=== PATIENT | female | born 2000 | race Caucasian/White ===

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

== ENCOUNTER 2020-07-22 13:53 | Outpatient (CLI) | payer MEDICAID, SELFPAY ==
--- NOTE | 2020-07-22 11:00 | DI.RAD_ITS ---
EXAM: XR KNEE RT 4V+ CLINICAL HISTORY: hx right paterllar dislocation, popping and pain. TECHNIQUE: 2D digital imaging was performed. COMPARISON: CR XR knee RT 3V AP,lat,skip from 02/18/2018 FINDINGS: BONES: No acute fracture is present. No bony destructive lesion is seen. JOINTS: The knee is normally aligned. No joint effusion is seen. SOFT TISSUE: Normal. IMPRESSION: Unremarkable radiographs of the right knee. DATA REPOSITORY: RADIATION DOSE DELIVERED:
== END 2020-07-22 14:13 ==
PROVIDERS: PCP Nurse Practitioner Family; Visit Provider Pediatrics
DX: M25.561 Pain in right knee (principal)
CPT/HCPCS: 73564

== ENCOUNTER 2020-10-01 04:01 | Outpatient (CLI) | payer MEDICAID, SELFPAY ==
--- NOTE | 2020-10-01 06:45 | DI.MRI_ITS ---
Exam(s) MR LOWER JOINT RT WO EXAM: MR LOWER JOINT RT WO CLINICAL HISTORY: ?MPFL TEAR,PATELLAR INSTABILITY RT KNEE, M25.361. TECHNIQUE: Multiplanar multisequence MRI Examination was performed. COMPARISON: 22 July 2020 FINDINGS: There is a small joint effusion. No synovial thickening. There is no Kat's cyst. The patellofemo ral ligaments appear intact. The cruciate and collateral ligaments, quadriceps and patellar tendons appear intact. The menisci appear intact. No bone contusion or cartilage defect is seen. IMPRESSION: Unremarkable MRI of the Right knee. No evidence of MPFL tear. DATA REPOSITORY:
== END 2020-10-01 04:21 ==
PROVIDERS: PCP Nurse Practitioner Family; Visit Provider Student in an Organized Health Care Education/Training Program
DX: M25.561 Pain in right knee (principal); M25.361 Other instability, right knee; M25.461 Effusion, right knee
CPT/HCPCS: 73721

== ENCOUNTER 2020-11-08 02:36 | Outpatient (CLI) | payer MEDICAID, SELFPAY ==
[2020-11-08 12:03] LABS: Source Nasal/Nares
[2020-11-08 14:48] LABS: COVID-19 PCR Negative (Negative)
== END 2020-11-08 02:37 | disposition home or self-care (01) ==
PROVIDERS: PCP Nurse Practitioner Family; Visit Provider Student in an Organized Health Care Education/Training Program
DX: Z20.822 Contact with and (suspected) exposure to COVID-19 (principal); Z01.818 Encounter for other preprocedural examination
CPT/HCPCS: 87635

== ENCOUNTER 2020-11-09 09:51 | Day surgery (SDC) | payer MEDICAID, SELFPAY ==
[2020-11-09] VITALS (8 sets, daily range): BP systolic 100–111; BP diastolic 51–65; PULSE 54–70; RESP 16–25; TEMP 36.2–37.1; O2SAT 95–100; BMI 33.3
[2020-11-09] MEDS: Lactated Ringers 1,000 ML 80 ML IV (10:37)
--- NOTE | 2020-11-09 10:38 | W.ANESPRE ---
General Info Date of Service Date Performed: 11/09/20 Height: 5 ft 1.81 in Weight: 82.1 kg Body Mass Index (BMI): 33.3 Surgical Procedure: Operation Date: 11/09/20 12:10 Proposed Procedures Side Surgeon p KNEE RT MPFL RECONSTRUCTION , RT KNEE ARTHROSCOPY Right Omar Tran MD Meds Allergies and Home Medications Allergies Allergy/AdvReac Type Severity Reaction Status Date / Time kiwi Allergy Intermediate RASH AND Verified 11/05/20 14:16 SWELLING shellfish derived Allergy Intermediate RASH AND Verified 11/05/20 14:16 SWELLING COLD TEMPERATURES AdvReac Swelling/Ed Uncoded 11/05/20 14:16 reena Home Medication Medication Instructions Recorded Space Chamber Plus #1 01/27/16 epinephrine 0.3 mg/0.3 mL 0.3 mg IM ONCE #1 pack 12/06/18 injection, auto-injector ibuprofen 400 mg PO PRN PRN 04/04/19 albuterol sulfate 90 mcg/actuation 2 puff INHALATION Q4H PRN #1 05/19/20 aerosol inhaler inhaler citalopram 20 mg tablet 20 mg PO DAILY #30 tab 10/13/20 levothyroxine 75 mcg tablet 75 mcg PO DAILY 30 Days #30 tab-cap 10/13/20 trazodone 50 mg tablet 50 mg PO QHS PRN #30 tab 10/13/20 Current Visit Medications: Current Medications Generic Name Dose Route Start Last Admin Trade Name Freq PRN Reason Stop Dose Admin Ringer's Solution 1,000 mls @ 80 mls/hr 11/09/20 06:00 11/09/20 10:37 IV 12/08/20 23:59 80 mls/hr INFUSION KD Administration Cefazolin Sodium/Dextrose 2 gm in 50 mls @ 100 mls/hr 11/09/20 06:00 Ancef Duplex IVPB 11/09/20 16:00 PREOP KD IV Miscellaneous Supplies 1 each 11/09/20 06:00 Iv Access IV 12/08/20 23:59 DIRECTED KD Sodium Chloride 0 ml 11/09/20 06:00 Normal Saline Flush 10 Ml Syr IV 12/08/20 23:59 PRN PRN Sodium Chloride 0 ml 11/09/20 06:00 Normal Saline 10 Ml Vial IJ 12/08/20 23:59 DIRECTED PRN Sterile Water 0 ml 11/09/20 06:00 Water,Injection,Sterile 10 Ml Vial IJ 12/08/20 23:59 DIRECTED PRN PFSH Active Problems Active Problems: Problem Status Onset Code Anxiety F41.9 Depression F32.9 Patellar instability of right knee M25.361 DUB (dysfunctional uterine bleeding) 11/30/16 N93.8 Chronic motor tic 01/27/16 F95.1 Asthma, mild intermittent, well-controlled 04/14/15 J45.20 Acquired hypothyroidism 12/10/15 E03.9 Medical History Medical History Anxiety Asthma Depression Food allergy Hypothyroidism Tonsil stone Urticaria due to cold Tobacco Smoking/Tobacco Use Status: Never Second hand exposure: No Alcohol Alcohol Intake: never Substance Use Substance use: Never Substance use type: does not use Vital Signs and Lab Results Vital Signs Most Recent Vital Signs in EMR: Most Recent Vital Signs Temp Pulse Resp BP Pulse Ox 37.1 C 70 16 110/64 99 11/09/20 10:02 11/09/20 10:02 11/09/20 10:02 11/09/20 10:02 11/09/20 10:02 Lab Results Blood Type / Crossmatch: No Data to Display Complete Blood Count: No Data to Display Complete Metabolic Panel: No Data to Display Liver Function Panel: No Data to Display Coagulation Panel: No Data to Display Cardiac Panel: No Data to Display Arterial Blood Gas: No Data to Display Venous Blood Gas: No Data to Display Pancreas Panel: No Data to Display Thyroid Panel: No Data to Display Infectious Disease: Coronavirus (COVID-19)(PCR) Negative (Negative) 11/08/20 08:56 11/08/20 Coronavirus 2019 Source Nasal/Nares 11/08/20 08:56 11/08/20 Blood Cultures: No Data to Display Toxicology Panel: No Data to Display Panel: No Data to Display Anesthesia Assessment and Plan Anesthesia History Personal History: No History of Anesthesia Complications Family History: No Family History of Anesthesia Complications Exercise Tolerance Exercise Tolerance: Metabolic Equivalents>4 Pertinent Negatives Pertinent Negatives: No Symptoms of GERD, No Major Cardiovascular Symptoms or Complaints, No Major Pulmonary Symptoms or Complaints and No History of CVA/TIA Cardiac & Pulmonary Exam Cardiac Exam: Normal S1/S2 Heart Sounds Pulmonary Exam: Clear Bilateral Breath Sounds Airway Exam Known Difficult Airway: No Mallampati Class: 1 Mouth Opening: Normal (> 3cm) Thyromental Distance: Greater than 3 cm Neck Range of Motion: Full ROM Neck Circumference: Normal Teeth Condition: Normal Dentition ASA Classification ASA Score: ASA 1 Emergency Case?: No NPO Status NPO Status: NPO Clears >2 hours, Solids >8 hours Status Status: Negative HCG Anesthesia Plan Resuscitation Status: Full Code Anesthesia Technique: General Anesthesia Airway Planned: LMA Monitors Used: Standard Monitors
--- NOTE | 2020-11-09 11:15 | DI.RAD_ITS ---
Exam(s) XR KNEE RT 1V EXAM: XR KNEE RT 1V CLINICAL HISTORY: PATELLAR INSTABILITY RIGHT KNEE TECHNIQUE: 2D and realtime digital imaging was performed. COMPARISON: No exams were available for comparison FINDINGS: C-arm fluoroscopy was utilized by Dr. Tran. Please see Dr. Tran procedure note. IMPRESSION: RADIATION DOSE DELIVERED: edy Villegas=8.2 mGy Total DLP
[2020-11-09] MEDS: ceFAZolin 2 GM/50 ML BAG IVPB (11:45)
--- NOTE | 2020-11-09 12:11 | W.ANESNERVE ---
Nerve Block Single Injection Procedure Date and Time Date Performed: 11/09/20 Procedure Start: 11:40 Location Where Procedure Performed Procedure Location: PACU Reason Performed: Postoperative Analgesia Requesting Provider: Omar Tran Timeout Performed Timeout Performed: Yes Monitoring Used ECG, Blood Pressure and SpO2 Sterility Sterility: Hand Hygiene, Surgical Cap, Surgical Mask, Sterile Gloves, Eye Protection and Chlorhexidine Sedation Given During Procedure Sedation Given (Indicate Dose Given): Versed IV Dose:: 2 mg Patient Mental Status Patient Mental Status: Sedate with meaningful communication Nerve Block 1st Nerve Block: Laterality: Right Block Type: Adductor Canal Needle / Catheter Used: 120mm SonoPlex II Local Anesthetic Bolus (Indicate Dose Given): Lidocaine used for local infiltration of skin, Injected in 3-5ml increments after negative blood aspiration and Bupivacaine 0.25% Dose:: 20 cc Additives (Indicate Dose Given): None Ultrasound: Sterile probe cover and gel used Ultrasound Image Saved?: Yes Nerve Stimulator: Not Used Paresthesia: None Procedure Tolerated: No Complications and Patient tolerated well Procedure Outcome: Successful Performed By: Cheyenne Dao Supervised By: Cm Verma
--- NOTE | 2020-11-09 14:22 | W.PM.DSUDISC ---
Discharge Plan Disposition Patient Disposition: HOME Condition: Good Discharge Details Reason For Visit: Right Patellar Instability Attending Provider: Omar Tran Primary Care Provider: Jud Dumont Home Meds and New Rx's Prescriptions: New acetaminophen 500 mg tablet 500 mg PO Q6H PRN PRN (Reason: pain) Qty: 90 RF: 3 aspirin 81 mg tablet,delayed release (DR/EC) 81 mg PO BID Qty: 28 RF: 0 hydrocodone-acetaminophen 5-325 mg tablet 1 tab PO Q4H PRN (Reason: pain) Qty: 14 RF: 0 ibuprofen 600 mg tablet 600 mg PO TID PRN (Reason: pain) Qty: 90 RF: 3 Continued epinephrine [EpiPen 2-Paulino] 0.3 mg/0.3 mL auto-injector 0.3 mg IM ONCE Qty: 1 RF: 1 citalopram [Celexa] 20 mg tablet 20 mg PO DAILY Qty: 30 RF: 3 levothyroxine 75 mcg tablet 75 mcg PO DAILY 30 Days Qty: 30 RF: 4 trazodone 50 mg tablet 50 mg PO QHS PRN (Reason: insomnia and anxiety) Qty: 30 RF: 3 (DME) Space Chamber Plus 1 EACH spacer 1 ea Miscellaneous Q4H PRN Qty: 1 RF: 0 albuterol sulfate [ProAir HFA] 90 mcg/actuation HFA aerosol inhaler 2 puff Inhalation Q4H PRN Qty: 1 RF: 1 Discontinued ibuprofen 200 mg Tablet 400 mg PO PRN PRNRF: 0 Discharge Instructions Additional Instructions: Activity: You may bear weight as tolerated on the leg using crutches for support. Until you are able to lift your leg, you should use crutches to mobilize. Once you are able to activate your quadriceps, then you can start to discard the crutches. You may move your ankle and toes as needed. Dressing: You should keep the knee dressing for at least 3 days but may leave it for up to one week. You have small incisions under the dressing with buried sutures. You may take a get the incisions wet after 3 days. You may cover the wounds or dressings if you like but the wounds can get wet starting on day #3. Keep the incisions covered with light gauze or bandaids until follow-up. Medications: - You should take Tylenol and Ibuprofen around the clock for the first days-weeks. This will cover baseline pain control. - You have been prescribed a stronger medication, Hydrocodone/Acetaminophen, if needed. If this is necessary, and you need a refill, please call the office at [phone]. Follow-up: - You should have a followup with Dr. Tran and his team in 2 weeks. - You should start PT within the next week. Referrals: Omar Tran MD [ [facility] STAFF PHYSICIAN] - Equipment/Supplies: Partial Weight Bearing Crutches Activity:: Elevate Remove Dressings/Wound Care:: 72 hours Shower/Bathe:: 72 hours Diet:: As Tolerated Discharge Orders Discharge Orders: Discharge Order (Routine); Ordered 11/09/20 Ordered By: Omar Tran DS: Diagnosis Discharge Diagnosis (1) Patellar instability of right knee: Status: Acute
--- NOTE | 2020-11-09 14:42 | W.ANESPOSTOP ---
Postoperative Evaluation Date, Time and Location Date Performed: 11/09/20 Time Performed: 14:42 Patient Location: PACU Vital Signs Most Recent Imported Vital Signs: Most Recent Vital Signs Temp Pulse Resp BP Pulse Ox 36.2 C L 62 23 105/55 L 99 11/09/20 14:32 11/09/20 14:32 11/09/20 14:32 11/09/20 14:32 11/09/20 14:32 Assessment Mental Status: Arousable with meaningful communication Airway and Respiratory Function: Patent airway with normal (patient baseline) respiratory exam Cardiovascular Function: Hemodynamically Stable Hydration Status: Adequately Hydrated Nausea & Vomiting: No Nausea or Vomiting Pain: Pt. Denies Any Pain Peripheral Nerve Block: Regional nerve block not resolved at time of post operative discharge
--- NOTE | 2020-11-09 22:41 | ROE_ITS ---
Date of service: 11/09/20 Time of Service: 14:41 Operative Note Operative Note DATE OF PROCEDURE: 11/09/20 PRE-OP DIAGNOSIS: Right Patellar Instability POST-OP DIAGNOSIS: same PROCEDURE: Right Medial Patellofemoral Reconstruction with Allograft SURGEON: Omar Tran [employer] INSTRUCTOR: Greg Sanders ANESTHESIA TYPE: General LMA/ETT Refer to Anesthesia Record ESTIMATED BLOOD LOSS: 20 PATHOLOGY: none sent TOURNIQUET TIME: 0 COMPLICATIONS: None Patient was transported to: PACU Patient's condition: stable Indications: I have seen Alma in clinic for symptoms of right patellar instability. This was confirmed based on MRI and exam findings and clinical history. Nonoperative measures were exhausted but disability and pain and apprehension persisted. I discussed medial patellofemoral ligament reconstruction with the patient. I reviewed the risks of the procedure to include, but not limited to, bleeding, infection, pain, stiffness, recurrence, fracture, damage to nerves or vessels, recurrence, blood clot. Despite these risks, the patient elected to proceed. Findings: A diagnostic arthroscopy was performed with the following findings: Suprapatellar Pouch: No significant inflammation, No loose bodies Medial Compartment: No meniscal tear, Intact meniscal root, No significant chondromalacia or signs of arthritis, No loose bodies Notch: ACL and PCL were intact Lateral Compartment: No meniscal tear, No significant chondromalacia or signs of arthritis, No loose bodies Patellofemoral Compartment: No significant chondromalacia, Lateral Patellar Maltracking, dense anterior medial plica MPFL reconstruction performed with Gracillis allograft. Procedure Description: Alma was greeted in the preoperative holding area where the correct side was identified and marked. The consent was reviewed with the patient and signed. The history and physical was updated. All questions were answered. An adductor canal block was first administered. Then, Alma was taken back to the operating room. The patient was placed into the supine position on the operating room table. All bony prominences were well padded. Prophylactic antibiotics in the form of cefazolin were administered. An exam under anesthesia demonstrated at the right patella translated nearly 4 quartiles laterally. The right leg was then prepped with Chloraprep and draped in a standard fashion with arthroscopic extremity drape. A timeout to confirm correct identity, side and site, procedure, allergies, anesthesia, and medical concerns was performed. On the back table, the allograft was prepared. The gracilis allograft was thawed. The 2 ends were whipstitched with a #2 fiber loop. The graft was then wrapped around the Mitek rigid loop advanced. Graft was measured to be approximately 5 mm in total diameter at the end. The graft was kept soaked in vancomycin saline no needed later in the case. The leg was placed into a pneumatic leg gonzalez, SPIDER2. A standard lateral portal was made at the lateral border of the patella tendon in line with the inferior pole of the patella, soft spot. The skin and deep tissue was incised sharply and the blunt trochar was inserted atraumatically. A diagnostic arthro scopy was performed and the findings are listed above. The suprapatellar pouch had no significant inflammatory change. The patellofemoral articulation showed no articular damage but did show that the patella rested in a slightly lateral position. Going into flexion the patella with then relocate but the median ridge of the patella rested adjacent to the lateral aspect of the trochlea. There was also a dense anteromedial plica. The lateral gutter had no loose bodies and the medial gutter had no loose bodies. The knee was brought into some valgus stress in extension to open the medial compartment. A medial portal was made, localized by a spinal needle. The portal was created with an #11 blade through skin and capsule under direct visualization avoiding any meniscal injury. A probe was then inserted into the medial compartment. The medial compartment was fully inspected. The chondral surface of the tibia showed no significant chondromalacia and the surface of the femur showed no significant chondromalacia. The medial meniscus had no meniscal tear. The notch was then inspected which showed an intact ACL and an intact PCL. The leg was then brought into a figure of 4 position. The lateral compartment was fully inspected with the arthroscope and a probe. The chondral surface of the lateral femur showed no significant chondromalacia. The chondral surface of the lateral tibia showed no significant chondromalacia. The lateral meniscus had no meniscal tear. The arthroscope was brought back into the suprapatellar pouch and the leg was in full extension and using a shaver from the medial portal I resected the prominence of the anteromedial plica such that the patella was easily viewed in its entirety without any obstruction or interposition tissue. The knee was thoroughly irrigated with the arthroscopic fluid on high flow and pressure. Inflow was stopped and excess fluid was removed. The wounds were closed with 4- 0 Monocryl. Attention was now then turned to the MPFL reconstruction. A 2 to 3 cm incision was made off the medial border of the patella biased superiorly. This was taken down sharply through the skin. Once the deeper fascia was identified this was incised off of the patella in a full-thickness fashion down to the level of the joint capsule but not through it. At all times the joint capsule was not penetrated. This full-thickness flap was elevated and the medial border patella was identified. This medial border was roughened with a rongeur. I then placed 2 Mitek Lupine anchors. The first was placed superiorly at the very far superior medial aspect of the patella. The second was placed approximately 15 to 20 mm distally roughly in the midportion of the patella over the medial side. These anchors had excellent purchase in the bone and were tested for pullout strength initially. The medial epicondyle and the abductor tubercle were palpated through the skin over the medial aspect of the knee. This was marked on the skin. Another 2 cm incision was made overlying this area. I then created the plane between layers 2 and 3 on the medial side of the knee starting at the patella and working down towards the sulcus but doing the abductor tubercle and the medial epicondyle. Using a right angle clamp this course was identified and the layers overlying the abductor tubercle and the medial condyle were elevated and incised. A passing suture was placed within the appropriate layer from the medial femur to the medial patella. Using the guide pin from the Mytec rigid lipid band system, I placed the pin in the appropriate position as felt by palpation. I used a true lateral of the knee radiographically to confirm appropriate positioning, as just anterior to the posterior femoral line and just posterior to the posterior edge of Blumensat's line. This was then advanced into the femur aiming anteriorly and laterally. It was placed all the way through the femur out the lateral skin. This tunnel was measured at 75 mm in length. The graft was previously measured 5 mm in diameter so a 5 mm reamer was used to open up the path of the tendon graft. This was drilled to a depth of about 45 mm. The allograft with the ridge of advanced sutures were then passed from the patella through the second and third layers out to the medial knee. Passing suture was placed through the Beath pin and advanced across the femur and this passing suture was used to bring the sutures from the rigid loop advanced devices through the femur and out the lateral leg. Once this was in position the sutures and the graft material, which was previously marked, were brought through the femur. Once deep enough the button was flipped and countertraction was applied locking the button onto the lateral femoral surface. This was manipulated with a snap to make sure is resting on the bone. Based on previous measurements and palpation there is at least 15 mm of graft within the femur at this point. The remainder of the graft was then pulled tight through the medial knee and over the patella. The graft was advanced minimally into the femoral tunnel and the 2 ends were then secured to the medial patella for the previous anchors. Prior to placing the sutures I did test each anchor and unfortunately the more distal of the 2 pulled out. I then used a 4.0 mm Mitek anchor in its place with excellent purchase which was once again tested before placing. The suture from each anchor was then tied onto the tendon over the medial patella. This was done in multiple throws locking itself and then tying it onto itself. With this now in position the knee was taken through range of motion. The patella still noted to be somewhat lax but there is no notable asymmetry between flexion extension. I then used the rigid advance slipknot to tighten the graft by pulling it into the tunnel a few more millimeters. This was done incrementally and tested in multiple positions. This was done with the knee in approximate 45 degrees of flexion. After tightening it slightly I then brought the knee back to extension and also to flexion to make sure we had full range of motion and the patella was stable in extension. After this cycling was done the knee was able to be fully flexed and the patella was able to be translated up to 2 quartiles laterally but no more. The excess tendon at the patella was then folded over on itself and tied to each other using #2 Ortho cord. The previous sutures used to tie the tendon were also incorporated in this. The wounds were then thoroughly irrigated. The fascial layers of the medial knee were then closed in large grasping sutures using #2 Ortho cord. The tendinous material was placed underneath these layers. The fascia layer over the medial femur was also closed with a #0 Vicryl. Deep tissues were closed with 0 Vicryl followed by 2-0 Vicryl and the skin was closed with a running, subcuticular 4-0 Monocryl. The wounds were all injected with 0.25% bupivacaine. The knee was dressed with 4 x 4's, ABD, Kerlix, Steve wrap. A Cryo/Cuff was placed. The patient tolerated the procedure well and was taken to the PACU in a stable condition suffering no known complication.
== END 2020-11-09 16:20 | disposition home or self-care (01) ==
PROVIDERS: PCP Nurse Practitioner Family; Visit Provider Student in an Organized Health Care Education/Training Program
PROC: (CPT 29888; principal; 2020-11-09 12:00)
DX: M25.361 Other instability, right knee (principal); M22.11 Recurrent subluxation of patella, right knee; J45.909 Unspecified asthma, uncomplicated; E03.9 Hypothyroidism, unspecified
CPT/HCPCS: 27420; 29875; 76942; C1713; 73560; J0131; J0690; J1100; J1885; J2001; J2250; J2405; L8699

== ENCOUNTER 2020-12-23 14:40 | Outpatient (REF) | payer MEDICAID, SELFPAY | END 2020-12-23 14:41 | disposition home or self-care (01) | LOC: LBN 14:40 | PROVIDERS: PCP Nurse Practitioner Family; Visit Provider Obstetrics & Gynecology Gynecology | DX: L02.215 Cutaneous abscess of perineum (principal) | CPT/HCPCS: 87070; 87205 ==

== ENCOUNTER 2021-03-02 04:02 | Outpatient (CLI) | payer MEDICAID, SELFPAY ==
[2021-03-02 10:44] LABS: HGB 11.2 g/dL (11.2-15.7)
[2021-03-02 12:03] LABS: TSH (W/Ref FT4) 2.08 uIU/mL (0.36-3.74)
== END 2021-03-02 04:03 | disposition home or self-care (01) ==
LOC: LBO 04:03
PROVIDERS: PCP Nurse Practitioner Family; Visit Provider Nurse Practitioner Family
DX: E03.9 Hypothyroidism, unspecified (principal)
CPT/HCPCS: 36415; 84443; 85018

== ENCOUNTER 2021-06-20 16:48 | Outpatient (REF) | payer MEDICAID, SELFPAY ==
--- NOTE | 2021-06-20 14:15 | PAPFT_PTH ---
PATIENT: Alma Ayers LOC: [facility] U#:[id number] AGE/SX: 21/F ROOM: RE06/20/[address]: Yuli Montez NP : [id number] BED: DIS: 06/20/2021 SPEC #: [id number] RECD: 06/20/21 18:26 STATUS: DUTCH SAAVEDRA #: [id number] ASHA: 06/20/21 14:[address]: Yuli Montez NP DEPT: [facility] Cytology RECD BY: Karuna Cooney ENTERED: 06/20/21 18:26 SP TYPE: PAPFT OT DR: Jud Dumont Tissues: 1 - CX/ENDOCX FOR PAP SMEARS Procedures: PAP THIN PREP/[facility] Screening Comments: [id number]
== END 2021-06-20 16:49 | disposition home or self-care (01) ==
LOC: LBN 16:48
PROVIDERS: PCP Nurse Practitioner Family; Visit Provider Nurse Practitioner Women's Health
DX: Z12.4 Encounter for screening for malignant neoplasm of cervix (principal)
CPT/HCPCS: 88142

== ENCOUNTER 2021-06-30 11:23 | Outpatient (CLI) | payer MEDICAID, SELFPAY ==
--- NOTE | 2021-06-30 10:15 | DI.RAD_ITS ---
Exam(s) XR KNEE RT 3V AP,LAT,RAJNI EXAM: XR KNEE RT 3V AP,LAT,RAJNI CLINICAL HISTORY: eval R knee instability after MPFL. TECHNIQUE: 2D digital imaging was performed. COMPARISON: CR XR KNEE RT 4V+ from 07/22/2020 MR MR LOWER JOINT RT WO from 10/01/2020 FINDINGS: Is no evidence of fracture or joint effusion. 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 There has been interval surgery. There is now a single metallic plate at level of lateral epicondyle . Bone density is normal. No osseous lesions. Retropatellar compartment space appears normal. The re is no patellar offset evident. No degenerative changes in the knee joint. IMPRESSION: DATA REPOSITORY: RADIATION DOSE DELIVERED:
== END 2021-06-30 11:24 | disposition home or self-care (01) ==
LOC: DIORS 11:24
PROVIDERS: PCP Nurse Practitioner Family; Referring Provider Nurse Practitioner Family; Visit Provider Student in an Organized Health Care Education/Training Program
DX: M25.361 Other instability, right knee (principal); Z98.890 Other specified postprocedural states
CPT/HCPCS: 73562

== ENCOUNTER 2021-07-11 01:29 | Outpatient (CLI) | payer MEDICAID, SELFPAY ==
--- NOTE | 2021-07-11 07:30 | DI.MRI_ITS ---
Exam(s) MR LOWER JOINT RT WO EXAM: MR LOWER JOINT RT WO CLINICAL HISTORY: RT KNEE PAIN, PATELLAR INSTABILITY,M25.361 TECHNIQUE: Multiplanar multisequence MRI of the knee was performed. COMPARISON: CR XR knee RT 3V AP,lat,rajni from 02/18/2018 MR MR LOWER JOINT RT WO from 10/01/2020 CR XR KNEE RT 3V AP,LAT,RAJNI from 06/30/2021 FINDINGS: EFFUSION: A small amount of increased joint fluid. No large joint effusion. There is no evidence of Kat's cyst in the popliteal fossa. MARROW:There are postsurgical changes of medial patellofemoral ligament repair. Endo-button extends across the metaphysis of femur to the medial femoral condyle. There also postsurgical changes of the superomedial patella. There is a benign-appearing eccentric sclerotic bone lesion in the posterior aspect of the distal femoral diaphysis-metaphysis junction, not associated with surrounding bone valerie a and most probably a benign fibrous cortical defect. This is unchanged from the prior MRI scan of 2020. Also unchanged from plain radiographs of 02/18/2018. PATELLOFEMORAL COMPARTMENT: The quadriceps tendon is intact. The patellar ligament is intact. Mild increased signal noted in the quadriceps fat pad just above the patella. No abnormal signal noted in the anterior intra-articular Hoffa fat. There is no significant thinning of the retropatellar cartilage. No evidence of fissure nor signific ant chondral defect. No osteochondral defect at this level.Lateral patellar retinaculum appears inta ct. Postsurgical increased signal seen junction medial patellar retinaculum and patella. There is t hickening of the medial retinaculum. The remainder of the patellar retinaculum appears unremarkable as does the medial collateral ligament. CRUCIATE LIGAMENTS: The anterior cruciate ligament is intact.The posterior cruciate ligament is intac t. MEDIAL COMPARTMENT/MEDIAL MENISCUS: There are no tears of the medial meniscus evident.. There are no chondral defects, osteochondral defects, subarticular marrow edema, nor osteophytes evid ent. MEDIAL COLLATERAL LIGAMENT: Intact LATERAL COMPARTMENT/LATERAL MENISCUS: There is no evidence of lateral meniscal tear.There are no el dral defects, osteochondral defects, subarticular marrow edema, nor osteophytes evident. ILIOTIBIAL BAND: Intact LATERAL COLLATERAL LIGAMENT COMPLEX: The fibular collateral ligament is intact. The biceps femoris t endon is intact.Popliteus muscle and tendon are intact. IMPRESSION: 1. There postsurgical changes from medial patellofemoral ligament repair, including some thickening o f the medial patellar retinaculum.. 2. No meniscal nor cruciate ligament tears. No collateral ligament tears. 3. Small amount of increased joint fluid. 4. No obvious degenerative changes. DATA REPOSITORY:
--- NOTE | 2021-07-11 16:06 | DI.VRAD_ITS ---
PROCEDURE INFORMATION: Exam: MR Right Lower Extremity Joint Without Contrast, Knee Exam date and time: 07/11/2021 10:50 AM Age: 21 years old Clinical indication: Pain; Knee; Right; Prior surgery; Surgery date: 6+ months; Surgery type: Mpfl October 2020 TECHNIQUE: Imaging protocol: MR of the Right lower extremity joint without contrast. Exam focused on the knee. COMPARISON: MR LOWER JOINT RT WO 10/01/2020 10:07 AM FINDINGS: Bones and cartilage: No edema present in the femur, proximal tibia or fibula. Patella is in normal position. Joint spaces: No significant joint space effusion. Medial meniscus: Unremarkable. No tear. Lateral meniscus: Unremarkable. No tear. Anterior cruciate ligament: Unremarkable. No tear. Posterior cruciate ligament: Unremarkable. No tear. Medial capsule and supporting structures: Postsurgical changes of the lateral femur consistent with medial patellofemoral ligament repair. Endo-button extends across the metastasis of the femur to the medial femoral condyle. There are postsurgical changes of the superomedial patella. Lateral capsule and supporting structures: Unremarkable. No tear. Extensor mechanism of knee: Unremarkable. No tear. Muscles: Unremarkable. Soft tissues: Unremarkable. IMPRESSION: Postsurgical changes from medial patellofemoral ligament repair. Dictated and Authenticated by: Dk Balderas MD. Ordering:CONSUELO Nelson MD
== END 2021-07-11 01:49 ==
PROVIDERS: PCP Nurse Practitioner Family; Visit Provider Student in an Organized Health Care Education/Training Program
DX: M25.561 Pain in right knee (principal); M25.361 Other instability, right knee; Z98.890 Other specified postprocedural states; M25.461 Effusion, right knee
CPT/HCPCS: 73721

== ENCOUNTER 2021-07-14 20:20 | Emergency (ER) | payer MEDICAID, SELFPAY ==
[2021-07-14 20:14] VITALS: BP 145/81; PULSE 84; RESP 18; TEMP 36.5; O2SAT 98
[2021-07-14] MEDS: Normal Saline 1,000 ML 1000 ML IV (20:39)
[2021-07-14] MEDS: Ketorolac 30 MG/ML VIAL (20:39)
[2021-07-14 20:44] LABS: Abs Immature Grans 0.03 10^3/uL (0.0-0.06); Absolute Basophil Count 0.04 10^3/uL (0.0-0.2); Absolute Eosinophil Count 0.02 10^3/uL (0.0-0.7); Absolute Lymphocyte Count 3.26 10^3/uL (1.2-3.4); Absolute Monocyte Count 0.48 10^3/uL (0.1-0.8); Absolute Neutrophil Count 8.24 10^3/uL (1.2-6.7); Basophils % 0.3; Eosinophils % 0.2; HCT 38.6 % (36.0-46.0); HGB 12.2 g/dL (11.2-15.7); Immature Grans % 0.2; MCH 29.6 pg (27.0-33.0); MCHC 31.6 % (32.0-36.0); MCV 93.7 fL (80-95); MPV 10.7 fL (8.0-11.0); Neutrophils % 68.3; Nucleated RBC 0 %; Platelet Count 374 10^3/uL (130-400); RBC 4.12 10^6/uL (3.93-5.22); RDW 13.3 % (11.7-14.6); RDW-SD 46.4 fL; WBC 12.06 10^3/uL (4.4-10.8)
[2021-07-14 20:48] LABS: Bilirubin Negative (Negative); Blood Moderate (Negative); Clarity Clear (Clear); Glucose Negative (Negative); Ketones Negative (Negative); Leukocyte Esterase Negative (Negative); Nitrite Negative (Negative); Specific Gravity 1.025 (1.005-1.025); Urobilinogen 0.2 EU/dL (Up TO 0.2)
[2021-07-14 20:57] LABS: ALT 15 U/L (14-59); AST 12 U/L (15-37); Alkaline Phosphatase 73 U/L (46-116); BUN 13 mg/dL (7-18); Bilirubin, Total 0.2 mg/dL (0.2-1.0); CREATININE 1.1 mg/dL (0.55-1.02); Calcium 9.3 mg/dL (8.5-10.1); Chloride 101 mmol/L (98-107); Glucose 108 mg/dL (74-106); Potassium 3.4 mmol/L (3.5-5.1); Sodium 139 mmol/L (136-145)
[2021-07-14 21:26] LABS: Bacteria Negative HPF (Negative); C & S Indicated? No; Casts Negative LPF (Negative); Crystals Few Amorphous HPF (Negative); Epithelial Cells Moderate HPF (Negative); Mucus Negative (Negative); RBC >50 HPF (0-2); WBC Negative HPF (0-5)
--- NOTE | 2021-07-14 21:30 | DI.CT_ITS ---
Exam(s) CT RENAL COLIC WO EXAM: CT RENAL COLIC WO CLINICAL HISTORY: left flank pain, r/o stone. TECHNIQUE: Imaging Protocol: Axial computed tomography images with coronal and sagittal reformatted images were created and reviewed CONTRAST MATERIAL: Intravenous: none Oral: None COMPARISON: No exams were available for comparison FINDINGS: VISUALIZED LUNG BASES: No nodules nor pleural effusions evident. ABDOMEN: There is no ascites. LIVER: There are no obvious focal hepatic lesions evident of this noninfused study. GALLBLADDER/BILIARY: Subtle suggestion of gas containing gallstone. Gallbladder wall is not edematou s. There is no pericholecystic fluid. CBD is not dilated. PANCREAS: No evidence of pancreatic mass nor dilatation of the pancreatic duct. SPLEEN: Spleen is not enlarged. No obvious intrasplenic lesions. ADRENALS: There are no significant adrenal masses. KIDNEYS:There is mild left-sided hydronephrosis related to a small 2 millimeter calculus in the upper half of the left ureter. No other calculi evident. No solid renal masses. No cysts. No findings in the urinary bladder.. ABDOMINAL AORTA: Abdominal aorta is not enlarged. LYMPH NODES: There is no retroperitoneal nor paraaortic adenopathy. ABDOMINAL WALL: No evidence of significant anterior abdominal wall nor inguinal hernia. GI: There is no evidence of bowel obstruction, free air, nor abscess. PELVIS: LYMPH NODES: There is no intrapelvic nor inguinal adenopathy. GI: No evidence of appendicitis.No evidence of sigmoid diverticulitis. URINARY BLADDER: No calculi nor obvious masses evident REPRODUCTIVE: Unremarkable OSSEOUS: No significant osseous lesions. IMPRESSION: 1. There is a small 2 millimeter calculus in the mid left ureter with mild dilatation left collecting system above this level. No other calculi evident in the kidney nor in the opposite-right side ronald ecting system nor in the urinary bladder RADIATION DOSE DELIVERED: 943.04mGy.cm Total DLP DATA REPOSITORY: All CT scans at this facility are submitted to the National Radiology Data Registry (NRDR) Dose Index Registry (DIR) with the [employer] ([employer]). RADIATION OPTIMIZATION: All CT scans at this facility use at least one of these dose optimization te chniques: automated exposure control; mA and/or kV adjustment per patient size (includes targeted exa ms where dose is matched to clinical indication); or iterative reconstruction.
--- NOTE | 2021-07-14 22:12 | DI.VRAD_ITS ---
PROCEDURE INFORMATION: Exam: CT Abdomen And Pelvis Without Contrast Exam date and time: 07/14/2021 9:31 PM Age: 21 years old Clinical indication: Other: Lt flank pain TECHNIQUE: Imaging protocol: Computed tomography of the abdomen and pelvis without contrast. Radiation optimization: All CT scans at this facility use at least one of these dose optimization techniques: automated exposure control; mA and/or kV adjustment per patient size (includes targeted exams where dose is matched to clinical indication); or iterative reconstruction. COMPARISON: US PELVIS LIMITED 04/04/2019 3:59 PM FINDINGS: Liver: Normal. No mass. Gallbladder and bile ducts: Normal. No calcified stones. No ductal dilation. Pancreas: Normal. No ductal dilation. Spleen: Normal. No splenomegaly. Adrenal glands: Normal. No mass. Kidneys and ureters: There is minimal left perinephric edema. There is moderate left hydronephrosis. There appears to be a partially obstructing left ureteral midpole calculus series 3, image 371, 2 mm in diameter. Stomach and bowel: Unremarkable. No obstruction. No mucosal thickening. Appendix: No evidence of appendicitis. Intraperitoneal space: Unremarkable. No free air. No significant fluid collection. Vasculature: Unremarkable. No abdominal aortic aneurysm. Lymph nodes: Unremarkable. No enlarged lymph nodes. Urinary bladder: Unremarkable as visualized. Reproductive: Unremarkable as visualized. Bones/joints: Unremarkable. No acute fracture. Soft tissues: Unremarkable. IMPRESSION: Left mid ureteral partially obstructing calculus. Dictated and Authenticated by: Jennifer Freeman MD. Ordering:CHEO Tony MD
[2021-07-14] MEDS: Tamsulosin 0.4 MG CAPCR PO (22:19)
--- NOTE | 2021-07-14 22:24 | ED.GENADUL_ITS ---
Discharge Plan Disposition Patient Disposition: HOME Condition: Good Discharge Details Clinical Impression: Kidney stone on left side Primary Care Provider: Jud Dumont ED Provider: Chavo Smith Home Meds and New Rx's Prescriptions: New tamsulosin [Flomax] 0.4 mg capsule 0.4 mg PO DAILY Qty: 7 0RF Continued epinephrine [EpiPen 2-Paulino] 0.3 mg/0.3 mL auto-injector 0.3 mg IM ONCE Qty: 1 1RF Xulane 150-35 mcg/24 hr patch weekly 1 patch transdermal QWEEK Qty: 9 5RF Rx Instructions: apply once weekly for 3 weeks of a 4-week cycle trazodone 50 mg tablet 50 mg PO QHS PRN (Reason: insomnia and anxiety) Qty: 30 1RF citalopram [Celexa] 10 mg tablet 10 mg PO DAILY Qty: 30 1RF citalopram [Celexa] 20 mg tablet 20 mg PO DAILY Qty: 30 1RF (DME) Space Chamber Plus 1 EACH spacer 1 ea Miscellaneous Q4H PRN Qty: 1 0RF Rx Instructions: use with inhaler as directed albuterol sulfate [ProAir HFA] 90 mcg/actuation HFA aerosol inhaler 2 puff Inhalation Q4H PRN Qty: 1 1RF Rx Instructions: 2 puffs with spacer every 4hr as needed for cough/wheeze acetaminophen 500 mg tablet 500 mg PO Q6H PRN PRN (Reason: pain) Qty: 90 3RF ibuprofen 600 mg tablet 600 mg PO TID PRN (Reason: pain) Qty: 90 3RF Discharge Instructions Instructions: Kidney Stones (ED) Additional Instructions: At this time you have evidence of a small kidney stone. Based on its size there is a high likelihood that it will pass on its own without significant problem. Please take Tylenol 1000 mg every 6 hours as needed for pain. Additionally you can take ibuprofen 600 mg every 6 hours as needed for pain. You have been given a prescription for Flomax, which will help speed the explosion of the stone potentially. Please take this as directed. Please use the strainer and evaluate for the stone. If you collect it your primary care provider can perform an analysis determine what type of stones it is which will aid in treatment the future and prevention. Please drink plenty of fluids and stay well-hydrated. If you notice any worsening of your symptoms, or any new symptoms such as vomiting, diarrhea, fever, chills, shortness of breath, chest pain, numbness, weakness, or fainting , please return immediately to the emergency department for reevaluation. Please follow up with your primary care provider as soon as possible for reassessment and reevaluation. As always, it was a pleasure participating in your medical care today. Referrals: Jud Dumont, CHIE[employer] OPERATOR [employer] [Primary Care Provider] - Medical Decision Making This is a 21-year-old female with a past medical history of asthma, hypothyroidism, and family history of kidney stones who presents today for left flank pain. Patient states that she has had mild cramps for the last 2 days, however this evening she suddenly had a sharp severe left upper flank pain. It left for a few minutes and then it resolved on its own. The remaining pain is mild achiness in that area. She denies any vomiting or diarrhea. She denies any urinary recency or bleeding. She denies any change in her menstrual status. No other complaints at time. She denies any aggravating or relieving factors otherwise. On her way and she did not feel any pain with the bumps in the road. She did present via EMS. Physical exam demonstrates minimal left-sided achiness. No reproducible tenderness otherwise. Differential is high in is for kidney stone, will get CT scan, basic labs, gently rehydrate, give Toradol, monitor closely and reassess. 10:30 PM Laboratory work-up has returned, minimal white count at 12, electrolytes stable, creatinine 1.1, GFR normal, urinalysis shows moderate blood, no leuk esterase, no nitrites, no WBCs, no evidence of infection whatsoever. CT scan shows evidence of a small left kidney stone, but no other significant abnormality. Patient is feeling much better. She feels well like to go home. Patient stable for discharge. Will give strainer for home use. We will give a dose of Flomax here and a prescription for home. Recommend hydration, NSAIDs as needed, and close follow-up for reassessment. I have extensively reviewed the treatment plan and discharge instructions with the patient. I have addressed all patient concerns at this time. The patient was made aware of what symptoms to monitor for that would warrant a return to the emergency department. Discussed the plan with the patient, they demonstrate verbal understanding and agreement with our assessment and plan at this time. The documentation in this chart was dictated using [employer] dictation software. Please excuse any dictation errors. FINDINGS: Liver: Normal. No mass. Gallbladder and bile ducts: Normal. No calcified stones. No ductal dilation. Pancreas: Normal. No ductal dilation. Spleen: Normal. No splenomegaly. Adrenal glands: Normal. No mass. Kidneys and ureters: There is minimal left perinephric edema. There is moderate left hydronephrosis. There appears to be a partially obstructing left ureteral midpole calculus series 3, image 371, 2 mm in diameter. Stomach and bowel: Unremarkable. No obstruction. No mucosal thickening. Appendix: No evidence of appendicitis. Intraperitoneal space: Unremarkable. No free air. No significant fluid collection. Vasculature: Unremarkable. No abdominal aortic aneurysm. Lymph nodes: Unremarkable. No enlarged lymph nodes. Urinary bladder: Unremarkable as visualized. Reproductive: Unremarkable as visualized. Bones/joints: Unremarkable. No acute fracture. Soft tissues: Unremarkable. IMPRESSION: Left mid ureteral partially obstructing calculus. Thank you for allowing us to participate in the care of your patient. Dictated and Authenticated by: Jennifer Freeman MD 07/14/2021 10:12 PM Eastern Time ([place] & [place]) HPI General Date/Time Provider Initiated Documentation: 07/14/21 20:32 . HPI Narrative: This is a 21-year-old female with a past medical history of asthma, hypothyroidism, and family history of kidney stones who presents today for left flank pain. Patient states that she has had mild cramps for the last 2 days, however this evening she suddenly had a sharp severe left upper flank pain. It left for a few minutes and then it resolved on its own. The remaining pain is mild achiness in that area. She denies any vomiting or diarrhea. She denies any urinary recency or bleeding. She denies any change in her menstrual status. No other complaints at time. She denies any aggravating or relieving factors otherwise. On her way and she did not feel any pain with the bumps in the road. She did present via EMS. Related Data Home Medications Medication Instructions Recorded Confirmed inhalational spacing device (Space #1 01/27/16 07/14/21 Chamber Plus) albuterol sulfate 90 mcg/actuation 2 puff INHALATION Q4H PRN #1 05/19/20 07/14/21 aerosol inhaler (ProAir HFA) inhaler acetaminophen 500 mg tablet 500 mg PO Q6H PRN PRN #90 tab 11/09/20 07/14/21 ibuprofen 600 mg tablet 600 mg PO TID PRN #90 tab 11/09/20 07/14/21 epinephrine 0.3 mg/0.3 mL 0.3 mg (0.3 mL) IM ONCE #1 pack 03/09/21 07/14/21 injection, auto-injector (EpiPen 2-Paulino) norelgestromin 150 mcg-e.estradiol 1 patch TRANSDERMAL QWEEK #9 ea 06/20/21 07/14/21 35 mcg/24 hr weekly transderm patch (Xulane) citalopram 10 mg tablet (Celexa) 10 mg PO DAILY #30 tab 07/14/21 07/14/21 citalopram 20 mg tablet (Celexa) 20 mg PO DAILY #30 tab 07/14/21 07/14/21 tamsulosin 0.4 mg capsule (Flomax) 0.4 mg PO DAILY #7 cap 07/14/21 trazodone 50 mg tablet 50 mg PO QHS PRN #30 tab 07/14/21 07/14/21 Previous Rx's Medication Instructions Recorded albuterol sulfate 90 mcg/actuation 2 puff INHALATION Q4H PRN #1 05/19/20 aerosol inhaler (ProAir HFA) inhaler acetaminophen 500 mg tablet 500 mg PO Q6H PRN PRN #90 tab 11/09/20 ibuprofen 600 mg tablet 600 mg PO TID PRN #90 tab 11/09/20 epinephrine 0.3 mg/0.3 mL 0.3 mg (0.3 mL) IM ONCE #1 pack 03/09/21 injection, auto-injector (EpiPen 2-Paulino) norelgestromin 150 mcg-e.estradiol 1 patch TRANSDERMAL QWEEK #9 ea 06/20/21 35 mcg/24 hr weekly transderm patch (Xulane) citalopram 10 mg tablet (Celexa) 10 mg PO DAILY #30 tab 07/14/21 citalopram 20 mg tablet (Celexa) 20 mg PO DAILY #30 tab 07/14/21 tamsulosin 0.4 mg capsule (Flomax) 0.4 mg PO DAILY #7 cap 07/14/21 trazodone 50 mg tablet 50 mg PO QHS PRN #30 tab 07/14/21 Allergies Allergy/AdvReac Type Severity Reaction Status Date / Time kiwi Allergy Intermediate RASH AND Verified 07/14/21 20:19 SWELLING shellfish derived Allergy Intermediate RASH AND Verified 07/14/21 20:19 SWELLING COLD TEMPERATURES AdvReac Swelling/Ed Uncoded 07/14/21 20:19 reena General Stated Complaint: Abd Prob DESTINY: 3 Review of Systems All systems reviewed & are unremarkable except as noted in HPI and below PFSH All Active Problems Kidney stone on left side (Acute) Patellar instability of right knee (Acute) 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 Followed by [facility] [place] endo- other labs reassuring Medical History Asthma Contraception 12/27/2020. OCPs abnormal uterine bleeding in the past. Patient given info on Nexplanon and Kyleena IUD DUB (dysfunctional uterine bleeding) (11/30/16) no doubt affected by thyroid issues Food allergy Hypothyroidism Skin abscess Tonsil stone Urticaria due to cold Family History Mother Diabetes Essential hypertension Father Healthy adult Grandfather Diabetes PGF Essential hypertension MGF Grandmother Essential hypertension MGM Other Essential hypertension MGGF Social History Smoking/Tobacco Use Status: Never Second Hand Exposure: No Smoking risk assessment performed?: Yes Alcohol Intake: never Drug use: Never Substance use type: does not use Household members: family Pets and animals: Yes Pets and animals: dog(s) Sexually active: No (never) Do you feel safe at home: Yes Do you feel safe in your relationship?: Yes Female Reproductive History Menstrual control method: abstinence (not yet sexually active) History History 0 Para Hx # Term Pregnancies Multiple births Hx # Pregnancies Ectopic pregnancies AB induced Hx Number of Living Children AB spontaneous Exam Narrative Exam Narrative: 1.Const: Well-nourished, Well-developed, appearing stated age 2.Eyes: PERRL, no conjunctival injection, and symmetrical lids. 3.ENT: Atraumatic external nose and ears. Moist MM. Neck: Symmetric, trachea midline, No thyromegaly. 4.CVS: +S1/S2, No murmurs or gallops. Peripheral pulses 2+ and equal in all extremities. Brisk capillary refill in all extremities. 5.RESP: Unlabored respiratory effort. Clear to auscultation bilaterally. No wheezes rales or rhonchi 6.GI: Soft, Nontender/Nondistended, No hepatosplenomegaly. No guarding or rebound. No pain to McBurney's point. Negative Johnson sign. No suprapubic tenderness. Mild left-sided CVA achiness on percussion. 7.MSK: Normocephalic/Atraumatic, Extremities w/o deformity or ttp No cyanosis or clubbing, Normal movement of all extremities 8.Skin: Warm, Dry. No rashes or lesions. 9.Neuro: consulting services associate II-XII grossly intact. Sensation grossly intact, no focal neurologic deficits. 10.Psych: (AAO) x3. Appropriate mood and affect Course Vital Signs Vital signs: Vital Signs Temperature 36.5 C 07/14/21 20:14 Pulse 84 07/14/21 20:14 Respiratory Rate 18 07/14/21 20:14 Blood Pressure 145/81 H 07/14/21 20:14 Pulse Oximetry 98 07/14/21 20:14 Temperature 36.5 C 07/14/21 20:14 Temperature Source Temporal Artery Scan 07/14/21 20:14 Pulse 84 07/14/21 20:14 Respiratory Rate 18 07/14/21 20:14 Blood Pressure 145/81 H 07/14/21 20:14 Blood Pressure Position Sitting 07/14/21 20:14 Pulse Oximetry 98 07/14/21 20:14 Oxygen Delivery Method Room Air 07/14/21 20:14 Oxygen Flow Rate 0 07/14/21 20:14 Lab/Test Results Lab/Test Results: Laboratory Tests Range/Units 02/07/14/21 07/14/21 20:20 20:30 20:30 WBC (4.4-10.8) 10^3/uL 12.06 H RBC (3.93-5.22) 10^6/uL 4.12 Hgb (11.2-15.7) g/dL 12.2 Hct (36.0-46.0) % 38.6 MCV (80-95) fL 93.7 MCH (27.0-33.0) pg 29.6 MCHC (32.0-36.0) % 31.6 L RDW (11.7-14.6) % 13.3 Plt Count (130-400) 10^3/uL 374 MPV (8.0-11.0) fL 10.7 Immature Gran % 0.2 Neutrophils % 68.3 Lymphocytes % 27.0 Monocytes % 4.0 Eosinophils % 0.2 Basophils % 0.3 Nucleated RBC % % 0 Absolute Neutrophils (1.2-6.7) 10^3/uL 8.24 H Absolute Lymphocytes (1.2-3.4) 10^3/uL 3.26 Absolute Monocytes (0.1-0.8) 10^3/uL 0.48 Absolute Eosinophils (0.0-0.7) 10^3/uL 0.02 Absolute Basophils (0.0-0.2) 10^3/uL 0.04 Sodium (136-145) mmol/L 139 Potassium (3.5-5.1) mmol/L 3.4 L Chloride (98-107) mmol/L 101 Carbon Dioxide (21.0-32.0) mmol/L 27.0 Anion Gap (3-11) mmol/L 11.0 BUN (7-18) mg/dL 13 Creatinine (0.55-1.02) mg/dL 1.1 H Estimated GFR/1.73 m2 (mL/min/1.73m2) >= 60.00 Glucose (74-106) mg/dL 108 H Calcium (8.5-10.1) mg/dL 9.3 Total Bilirubin (0.2-1.0) mg/dL 0.2 AST (15-37) U/L 12 L ALT (14-59) U/L 15 Alkaline Phosphatase (46-116) U/L 73 Total Protein (6.4-8.2) g/dL 8.0 Albumin (3.4-5.0) g/dL 4.0 Urine Color (Yellow) Yellow Urine Clarity (Clear) Clear Urine pH (5-8) 7.0 Ur Specific [place] (1.005-1.025) 1.025 Urine Protein (Negative) mg/dL 30 H Urine Ketones (Negative) mg/dL Negative Urine Blood (Negative) Moderate H Urine Nitrite (Negative) Negative Urine Bilirubin (Negative) Negative Urine Urobilinogen (Up TO 0.2) EU/dL 0.2 Ur Leukocyte Esterase (Negative) Negative Urine RBC (0-2) HPF >50 H Urine WBC (0-5) HPF Negative Ur Epithelial Cells (Negative) HPF Moderate Urine Crystals (Negative) HPF Few Amorphous Urine Bacteria (Negative) HPF Negative Urine Casts (Negative) LPF Negative Urine Mucus (Negative) Negative Ur Culture Indicated? No Urine Glucose (Negative) mg/dL Negative POC- Test(urine) Negative
[2021-07-14 22:29] VITALS: BP 112/66; PULSE 68; RESP 18; O2SAT 98
== END 2021-07-14 22:41 | disposition home or self-care (01) ==
PROVIDERS: Emergency Provider Student in an Organized Health Care Education/Training Program; PCP Nurse Practitioner Family
DX: N20.0 Calculus of kidney (principal)
CPT/HCPCS: 36415; 80053; 81025; 96361; 96374; 99284; 74176; 81003; 81015; 85025; 99283; J1885

== ENCOUNTER 2021-08-03 02:21 | Outpatient (CLI) | payer MEDICAID, SELFPAY ==
[2021-08-03 11:33] LABS: Source Nasal/Nares
[2021-08-03 14:04] LABS: COVID-19 PCR Negative (Negative)
== END 2021-08-03 02:22 | disposition home or self-care (01) ==
LOC: LBO 02:22
PROVIDERS: PCP Nurse Practitioner Family; Visit Provider Student in an Organized Health Care Education/Training Program
DX: Z20.822 Contact with and (suspected) exposure to COVID-19 (principal)
CPT/HCPCS: 87635

== ENCOUNTER 2021-08-05 11:17 | Day surgery (SDC) | payer MEDICAID, SELFPAY ==
[2021-08-05] VITALS (8 sets, daily range): BP systolic 108–122; BP diastolic 57–69; PULSE 60–77; RESP 12–18; TEMP 36.4–37; O2SAT 95–100; BMI 37.2
--- NOTE | 2021-08-05 11:46 | W.PREOPHP ---
Assessment and Plan Assessment and plan (1) Patellar instability of right knee: Status: Acute Assessment and plan: Alma is a 21yo female who has had some recurrent dislocaitona nd apprehension of her right patella after MPFL reconstruction. The MRI would suggest the construct is still intact with question of disruption of the superior medial attachment point to the patella. She continues to have apprehension so I recommend proceeding with exploration and repair of the superior medial soft tissues. I reviewed the risks of the procedure to include bleeding, infection, pain, stiffness, recurrence, need for repeat procedures, clot. All questions were answered. History of Present Illness Narrative: Alma is a 21yo who is s/p MPFL reconstruction this past year. She was doing very well until a recurrent dislocation event. She has had a few other dislocation events but then just has apprehension. She has failed other conservative options and MRI showed some signal within the superior medial patella and soft tissues. No chest pain or SOB. No medical issues. 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 Followed by [facility] endo- other labs reassuring Medical History Asthma Contraception 12/27/2020. OCPs abnormal uterine bleeding in the past. Patient given info on Nexplanon and Kyleena IUD DUB (dysfunctional uterine bleeding) (11/30/16) no doubt affected by thyroid issues Food allergy Hypothyroidism Skin abscess Tonsil stone Urticaria due to cold Family History Mother Diabetes Essential hypertension Father Healthy adult Grandfather Diabetes PGF Essential hypertension MGF Grandmother Essential hypertension MGM Other Essential hypertension MGGF Social History Smoking/Tobacco Use Status: Never Second Hand Exposure: No Smoking risk assessment performed?: Yes Alcohol Intake: never Drug use: Never Substance use type: does not use Household members: family Pets and animals: Yes Pets and animals: dog(s) Sexually active: No (never) Do you feel safe at home: Yes Do you feel safe in your relationship?: Yes Female Reproductive History Menstrual control method: abstinence (not yet sexually active) History History 0 Para Hx # Term Pregnancies Multiple births Hx # Pregnancies Ectopic pregnancies AB induced Hx Number of Living Children AB spontaneous Meds Allergies and Home Medications Allergies Allergy/AdvReac Type Severity Reaction Status Date / Time kiwi Allergy Intermediate RASH AND Verified 08/04/21 09:27 SWELLING shellfish derived Allergy Intermediate RASH AND Verified 08/04/21 09:27 SWELLING COLD TEMPERATURES AdvReac Swelling/Ed Uncoded 08/04/21 09:27 reena Home Medications Medication Instructions Recorded Confirmed Type inhalational spacing device (Space #1 01/27/16 07/14/21 History Chamber Plus) albuterol sulfate 90 mcg/actuation 2 puff INHALATION Q4H PRN #1 05/19/20 08/04/21 Rx aerosol inhaler (ProAir HFA) inhaler acetaminophen 500 mg tablet 500 mg PO Q6H PRN PRN #90 tab 11/09/20 08/04/21 Rx ibuprofen 600 mg tablet 600 mg PO TID PRN #90 tab 11/09/20 08/04/21 Rx epinephrine 0.3 mg/0.3 mL 0.3 mg (0.3 mL) IM ONCE #1 pack 03/09/21 08/04/21 Rx injection, auto-injector (EpiPen 2-Paulino) norelgestromin 150 mcg-e.estradiol 1 patch TRANSDERMAL QWEEK #9 ea 06/20/21 08/04/21 Rx 35 mcg/24 hr weekly transderm patch (Xulane) citalopram 10 mg tablet (Celexa) 10 mg PO DAILY #30 tab 07/14/21 08/04/21 Rx citalopram 20 mg tablet (Celexa) 20 mg PO DAILY #30 tab 07/14/21 08/04/21 Rx tamsulosin 0.4 mg capsule (Flomax) 0.4 mg PO DAILY #7 cap 07/14/21 Rx trazodone 50 mg tablet 50 mg PO QHS PRN #30 tab 07/14/21 08/04/21 Rx levothyroxine 75 mcg capsule 75 mcg PO DAILY 08/04/21 08/04/21 History Exam Resp Effort & Inspection: normal respiratory effort and able to speak in complete sentences Cardio Rate: regular rate Rhythm: regular rhythm Extrem Other: RLE well healed incisions. No gross patellar instability.
[2021-08-05] MEDS: Celecoxib 200 MG CAP 400 MG PO (12:21)
[2021-08-05] MEDS: Acetaminophen 500 MG TAB 1000 MG PO (12:21)
[2021-08-05] MEDS: Lactated Ringers 1,000 ML 80 ML IV (12:22)
--- NOTE | 2021-08-05 12:33 | W.ANESPRE ---
General Info Date of Service Date Performed: 08/05/21 Height: 5 ft 2 in Weight: 92.4 kg Body Mass Index (BMI): 37.2 Surgical Procedure: Operation Date: 08/05/21 13:10 Proposed Procedure Side Surgeon p MPFC Repair, Capsular Advancement Right Omar Tran MD Meds Allergies and Home Medications Allergies Allergy/AdvReac Type Severity Reaction Status Date / Time kiwi Allergy Intermediate RASH AND Verified 08/05/21 11:57 SWELLING shellfish derived Allergy Intermediate RASH AND Verified 08/05/21 11:57 SWELLING COLD TEMPERATURES AdvReac Swelling/Ed Uncoded 08/04/21 09:27 reena Home Medication Medication Instructions Recorded inhalational spacing device (Space #1 01/27/16 Chamber Plus) albuterol sulfate 90 mcg/actuation 2 puff INHALATION Q4H PRN #1 05/19/20 aerosol inhaler (ProAir HFA) inhaler acetaminophen 500 mg tablet 500 mg PO Q6H PRN PRN #90 tab 11/09/20 ibuprofen 600 mg tablet 600 mg PO TID PRN #90 tab 11/09/20 epinephrine 0.3 mg/0.3 mL 0.3 mg (0.3 mL) IM ONCE #1 pack 03/09/21 injection, auto-injector (EpiPen 2-Paulino) norelgestromin 150 mcg-e.estradiol 1 patch TRANSDERMAL QWEEK #9 ea 06/20/21 35 mcg/24 hr weekly transderm patch (Xulane) citalopram 10 mg tablet (Celexa) 10 mg PO DAILY #30 tab 07/14/21 citalopram 20 mg tablet (Celexa) 20 mg PO DAILY #30 tab 07/14/21 tamsulosin 0.4 mg capsule (Flomax) 0.4 mg PO DAILY #7 cap 07/14/21 trazodone 50 mg tablet 50 mg PO QHS PRN #30 tab 07/14/21 levothyroxine 75 mcg capsule 75 mcg PO DAILY 08/04/21 Current Visit Medications: Current Medications Generic Name Dose Route Start Last Admin Trade Name Freq PRN Reason Stop Dose Admin Acetaminophen 1,000 mg 08/05/21 06:00 08/05/21 12:21 Acetaminophen 500 Mg Tab PO 08/05/21 16:00 1,000 mg PREOP KD Administration Celecoxib 400 mg 08/05/21 06:00 08/05/21 12:21 Celecoxib 200 Mg Cap PO 08/05/21 16:00 400 mg PREOP KD Administration Ringer's Solution 1,000 mls @ 80 mls/hr 08/05/21 06:00 08/05/21 12:22 IV 08/18/21 23:59 80 mls/hr INFUSION KD Administration Cefazolin Sodium/Dextrose 2 gm in 50 mls @ 100 mls/hr 08/05/21 06:00 Ancef Duplex IVPB 08/05/21 23:59 PREOP KD IV Miscellaneous Supplies 1 each 08/05/21 06:00 Iv Access IV 08/18/21 23:59 DIRECTED KD Sodium Chloride 0 ml 08/05/21 06:00 Normal Saline Flush 10 Ml Syr IV 08/18/21 23:59 PRN PRN Sodium Chloride 0 ml 08/05/21 06:00 Normal Saline 10 Ml Vial IJ 08/18/21 23:59 DIRECTED PRN Sterile Water 0 ml 08/05/21 06:00 Water,Injection,Sterile 10 Ml Vial IJ 08/18/21 23:59 DIRECTED PRN PFSH Active Problems Active Problems: Problem Status Onset Code Acquired hypothyroidism 12/10/15 E03.9 Asthma, mild intermittent, well-controlled 04/14/15 J45.20 Chronic motor tic 01/27/16 F95.1 Patellar instability of right knee M25.361 Depression F32.9 Anxiety F41.9 Kidney stone on left side N20.0 Medical History Medical History (Updated 08/05/21 @ 11:56 by Vijay Mcmanus) Asthma Contraception 12/27/2020. OCPs abnormal uterine bleeding in the past. Patient given info on Nexplanon and Kyleena IUD DUB (dysfunctional uterine bleeding) (11/30/16) no doubt affected by thyroid issues Food allergy Hx of renal calculi Hypothyroidism Skin abscess Tonsil stone Urticaria due to cold Medical History Comments:: Recent problem with kidney stone 3 weeks ago. Tobacco Smoking/Tobacco Use Status: Never Second hand exposure: No Alcohol Alcohol Intake: never Substance Use Substance use: Never Substance use type: does not use Prental History History 0 Para Hx # Term Pregnancies Multiple births Hx # Pregnancies Ectopic pregnancies AB induced Hx Number of Living Children AB spontaneous Vital Signs and Lab Results Vital Signs Most Recent Vital Signs in EMR: Most Recent Vital Signs Temp Pulse Resp BP Pulse Ox 36.5 C 77 16 122/69 95 08/05/21 11:25 08/05/21 11:25 08/05/21 11:25 08/05/21 11:25 08/05/21 11:25 Point of Care Results Point of Care Results: POC- Test(urine) Negative 08/05/21 11:25 Lab Results Blood Type / Crossmatch: No Data to Display Complete Blood Count: White Blood Count 12.06 10^3/uL (4.4-10.8) H 07/14/21 20:30 07/14/21 Red Blood Count 4.12 10^6/uL (3.93-5.22) 07/14/21 20:07/14/21 Hemoglobin 12.2 g/dL (11.2-15.7) 07/14/21 20:07/14/21 Hematocrit 38.6 % (36.0-46.0) 07/14/21 20:07/14/21 Platelet Count 374 10^3/uL (130-400) 07/14/21 20:30 07/14/21 Complete Metabolic Panel: Sodium Level 139 mmol/L (136-145) 07/14/21 20:30 07/14/21 Potassium Level 3.4 mmol/L (3.5-5.1) L 07/14/21 20:30 07/14/21 Chloride Level 101 mmol/L (98-107) 07/14/21 20:07/14/21 Carbon Dioxide Level 27.0 mmol/L (21.0-32.0) 07/14/21 20:30 07/14/21 Blood Urea Nitrogen 13 mg/dL (7-18) 07/14/21 20:30 07/14/21 Creatinine 1.1 mg/dL (0.55-1.02) H 07/14/21 20:30 07/14/21 Estimated GFR/1.73 m2 >= 60.00 (mL/min/1.73m2) 07/14/21 20:30 07/14/21 Calcium Level 9.3 mg/dL (8.5-10.1) 07/14/21 20:30 07/14/21 Albumin 4.0 g/dL (3.4-5.0) 07/14/21 20:30 07/14/21 Glucose Level 108 mg/dL (74-106) H 07/14/21 20:30 07/14/21 Liver Function Panel: Alanine Aminotransferase (ALT/SGPT) 15 U/L (14-59) 07/14/21 20:30 07/14/21 Aspartate Amino Transf (AST/SGOT) 12 U/L (15-37) L 07/14/21 20:30 07/14/21 Coagulation Panel: No Data to Display Cardiac Panel: No Data to Display Arterial Blood Gas: No Data to Display Venous Blood Gas: No Data to Display Pancreas Panel: No Data to Display Thyroid Panel: No Data to Display Infectious Disease: Coronavirus (COVID-19)(PCR) Negative (Negative) 08/03/21 08:40 08/03/21 Coronavirus 2019 Source Nasal/Nares 08/03/21 08:40 08/03/21 Blood Cultures: No Data to Display Toxicology Panel: No Data to Display Panel: No Data to Display Anesthesia Assessment and Plan Anesthesia History Personal History: No History of Anesthesia Complications Family History: No Family History of Anesthesia Complications Exercise Tolerance Exercise Tolerance: Metabolic Equivalents>4 Pertinent Negatives Pertinent Negatives: No Symptoms of GERD and No Major Cardiovascular Symptoms or Complaints Cardiac & Pulmonary Exam Cardiac Exam: Normal S1/S2 Heart Sounds Pulmonary Exam: Clear Bilateral Breath Sounds Implantable Cardiac Device Does patient have a Pacemaker or an ICD?: No Airway Exam Known Difficult Airway: No Mallampati Class: 1 Mouth Opening: Normal (> 3cm) Thyromental Distance: Greater than 3 cm Neck Range of Motion: Full ROM Neck Circumference: Normal Teeth Condition: Normal Dentition ASA Classification ASA Score: ASA 2 Emergency Case?: No NPO Status NPO Status: NPO Clears >2 hours, Solids >8 hours Status Status: Negative HCG Anesthesia Plan Resuscitation Status: Full Code Anesthesia Technique: General Anesthesia Airway Planned: LMA Monitors Used: Standard Monitors
[2021-08-05] MEDS: ceFAZolin 2 GM/50 ML BAG IVPB (13:03)
--- NOTE | 2021-08-05 13:08 | PDOC.DSDIS_ITS ---
Discharge Plan Disposition Patient Disposition: HOME Condition: Stable Discharge Details Reason For Visit: MPFL reconstruction Attending Provider: Omar Tran Primary Care Provider: Jud Dumont Home Meds and New Rx's Prescriptions: New hydrocodone-acetaminophen 5-325 mg tablet 1 tab PO Q6H PRNQty: 5 0RF Continued epinephrine [EpiPen 2-Paulino] 0.3 mg/0.3 mL auto-injector 0.3 mg IM ONCE Qty: 1 1RF Xulane 150-35 mcg/24 hr patch weekly 1 patch transdermal QWEEK Qty: 9 5RF Rx Instructions: apply once weekly for 3 weeks of a 4-week cycle trazodone 50 mg tablet 50 mg PO QHS PRN (Reason: insomnia and anxiety) Qty: 30 1RF citalopram [Celexa] 10 mg tablet 10 mg PO DAILY Qty: 30 1RF citalopram [Celexa] 20 mg tablet 20 mg PO DAILY Qty: 30 1RF (DME) Space Chamber Plus 1 EACH spacer 1 ea Miscellaneous Q4H PRN Qty: 1 0RF Rx Instructions: use with inhaler as directed albuterol sulfate [ProAir HFA] 90 mcg/actuation HFA aerosol inhaler 2 puff Inhalation Q4H PRN Qty: 1 1RF Rx Instructions: 2 puffs with spacer every 4hr as needed for cough/wheeze levothyroxine 75 mcg Capsule 75 mcg PO DAILY 0RF acetaminophen 500 mg tablet 500 mg PO Q6H PRN PRN (Reason: pain) Qty: 90 3RF ibuprofen 600 mg tablet 600 mg PO TID PRN (Reason: pain) Qty: 90 3RF tamsulosin [Flomax] 0.4 mg capsule 0.4 mg PO DAILY Qty: 7 0RF Discharge Instructions Additional Instructions: Discharge Instructions Activity: You may bear weight as tolerated on the leg as long as the brace is on and you are using crutches for support. You should keep the brace on at all times until your follow-up. Weight bear as tolerated. You may remove the brace while resting. You may move your ankle and toes as needed. Dressing: You should keep the knee dressing in place until your follow-up appointment. If it becomes soiled or it unravels, you should call and notify the office. You may rewrap or overwrap until the follow-up. Medications: - You should take Tylenol and Ibuprofen around the clock for the first days- weeks. This will cover baseline pain control. - You have been prescribed a stronger medication if needed. If this is necessary, and you need a refill, please call the office at [phone]. Referrals: Omar Tran MD [ [facility] STAFF PHYSICIAN] - Equipment/Supplies: Partial Weight Bearing Crutches Activity:: Activity as Tolerated Remove Dressings/Wound Care:: Do Not Remove Shower/Bathe:: 72 hours Diet:: As Tolerated Discharge Orders Discharge Orders: Discharge Order (Routine); Ordered 08/05/21 Ordered By: Cindi Mora DS: Diagnosis Discharge Diagnosis (1) Patellar instability of right knee: Status: Acute
[2021-08-05] MEDS: Bupivacaine 0.5% Pres-Free 30 ML VIAL (14:00)
[2021-08-05] MEDS: oxyCODONE 5 MG TAB PO ×2 (14:53→15:53)
--- NOTE | 2021-08-05 15:04 | W.ANESPOSTOP ---
Postoperative Evaluation Date, Time and Location Date Performed: 08/05/21 Time Performed: 15:05 Patient Location: PACU Vital Signs Most Recent Imported Vital Signs: Most Recent Vital Signs Temp Pulse Resp BP Pulse Ox 37 C 63 18 114/65 100 08/05/21 14:50 08/05/21 14:50 08/05/21 14:50 08/05/21 14:50 08/05/21 14:50 Pain Score Most Recent Pain Score: Most Recent Pain Score Pain Level 8 08/05/21 14:50 Assessment Mental Status: Awake (Alert & Oriented to Patient Baseline) Airway and Respiratory Function: Patent airway with normal (patient baseline) respiratory exam Cardiovascular Function: Hemodynamically Stable Hydration Status: Adequately Hydrated Nausea & Vomiting: No Nausea or Vomiting Pain: Pain is Moderate or Severe Postoperative Pain Management: Pain being addressed with medication Peripheral Nerve Block: Patient did not receive a nerve block
--- NOTE | 2021-08-05 22:57 | W.PM.OP ---
Date of service: 08/05/21 Time of Service: 14:00 Operative Note Operative Note DATE OF PROCEDURE: 08/05/21 PRE-OP DIAGNOSIS: Right Patella Instability POST-OP DIAGNOSIS: same PROCEDURE: MPFL Graft Repair with Medial Soft Tissue Imbrication - Right Knee SURGEON: Omar Tran RUBBER EXTRUSION MACHINE OPERATOR: Montse Suárez ANESTHESIA TYPE: General LMA/ETT Refer to Anesthesia Record ESTIMATED BLOOD LOSS: 300 TOURNIQUET TIME: 0 COMPLICATIONS: None Patient was transported to: PACU Patient's condition: stable Indications: Naomi is a 21-year-old who I previously have seen for recurrent instability of patella. She underwent an NPFL reconstruction with allograft tissue back in October and did very well. 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 However, she had a recurrent dislocation event without significant preceding trauma. He tried physical therapy and bracing but continued to have apprehension. Therefore, I recommended an MRI which demonstrated some soft tissue edema and potential gapping of the graft at the level of the superior medial patella although the graft was intact around the medial soft tissues and into the medial femur. Therefore, I recommended an open evaluation of the MPFL reconstruction, the graft, and the medial soft tissues with repair and implications indicated. I reviewed the risk of the procedure to include bleeding, infection, pain, stiffness, recurrent instability, hardware failure, need for repeat procedures, blood clot. Despite these risks, she elected to proceed. Findings: The MPFL graft was identified from the more distal insertion site of the patella. The superior portion of the patella did not have any graft attached to it and the graft was more nebulous within the soft tissues in this area. Space between the first and second layers medial side of the knee were dissected to identify the graft tissue. I then placed a Mitek Lupine anchor in the superior portion of the medial patella repaired the superior portion of the graft back to the superior, medial patella. This was further reinforced with a medial imbrication of soft tissues and some mild advancement of the VMO using large FiberWire suture. Preoperatively, the patella was mobile to 4 quartile's in extension. After these procedures were performed, the patella was almost mobile to 2 quartile's. I was able to flex her knee to approximately 110 degrees, where calf thigh impingement occurred. Procedure Description: Naomi was greeted in the preoperative holding area. Her identity was confirmed the correct side was identified and marked. The consent was reviewed with the patient and signed. The patient was taken back to the operating room placed in supine position. All bony prominences well-padded. The right leg was prepped with ChloraPrep and draped in a standard fashion. Prophylactic antibiotics in the form of cefazolin were administered. A timeout was performed for safe surgery. The medial incision about the patella was incised after injecting the skin and soft tissues with 0.25% bupivacaine. This was extended approximately 1 cm in both directions for adequate visualization. Slow dissection was carried down through the soft tissues to identify the patella and the medial capsular tissues. The first layer of the capsule was incised and suture was readily identified. Interestingly, the knots were against the medial side of the patella. The sutures were removed. The graft was seen attached to the patella at the site of the more distal suture knot. However, there was a bald superior medial patella where the superior graft should be residing. Using scissors and blunt dissection created space and first and second layers of the medial side of the knee. I was able to identify the graft quite easily from the distal insertion site of the patella but much more difficult superiorly. With further dissection in these layers I was able to palpate the ridge of tissue of the graft superiorly and mobilize it using Allis clamp. It was quite tight in this area but was able to mobilize back to the patella. Therefore, I placed a Mitek Lupine anchor in the superior portion of the medial patella. Once this was placed was tested by pulling the kneecap all the way over with the sutures and showed no displacement. Using a free needle, I placed 1 limb from each suture into the soft tissues of the medial side of the knee, making sure not to include the first layer nor the synovium in this. I also made sure to incorporate the bulk of the graft as this was palpable by thickening cord within these tissues. Once this was performed I shuttled the tissues down to the medial side of the patella using the free limb of the suture. This patella that was tested while holding on the sutures and it showed significant improvement with its instability with translation of only approximately 2 quartile's. I then went ahead and tied the sutures without difficulty. Suture knots were buried. Using a #2 FiberWire I then performed a medial imbrication utilizing large mattress style sutures outside of the current zone bringing medial soft tissue up to the medial edge of the patella. I also incorporated the distal edge of the vastus medialis insertion onto the patella in essence performing a small advancement of the VMO. This was performed in multiple locations around the medial patella creating an imbricated soft tissue reinforcement. Once again with the knee in full extension the patella moved 1-1/2 quartile. Much improved from his preoperative state. I was able to test the in 210 degrees right did seem to be tight but there also was calf thigh impingement. There was no gapping of the previously repaired tissues. I injected the remainder of the soft tissues with 0.25% bupivacaine. The knee was fully irrigated. There is no active bleeding. Soft tissues were closed with 2-0 Vicryl followed by 3-0 Monocryl in a running, subcuticular fashion. This was reinforced with skin glue and a Mepilex over dressing was applied. An Steve wrap was wrapped from the knee and she was placed into a soft knee immobilizer. At the end the case all counts were correct. She was transferred back to the PACU in a stable condition. She will be weightbearing as tolerated within the knee immobilizer. We will start range of motion activities at 2 weeks.
== END 2021-08-05 16:30 | disposition home or self-care (01) ==
PROVIDERS: PCP Nurse Practitioner Family; Visit Provider Student in an Organized Health Care Education/Training Program
PROC: (CPT 27422; principal; 2021-08-05 13:00)
DX: M25.361 Other instability, right knee (principal); E03.9 Hypothyroidism, unspecified; J45.909 Unspecified asthma, uncomplicated
CPT/HCPCS: 27422; J0690; J1100; J1885; J2250; J2405; J2704

== ENCOUNTER 2021-11-02 09:49 | Outpatient (CLI) | payer MEDICAID, SELFPAY ==
--- NOTE | 2021-11-02 10:00 | RT.EKG_ITS ---
APPROVED REPORT Exam: Resting ECG Reason for Exam: covid positive 9 days ago, lightheaded Patient Location: O HR:73 bpm ECG Measurements Heart Rate 73 AXIS WA 148 P 32 QRSd 105 QRS 0 QT 380 T 11 QTc 419 Conclusion Sinus rhythm...normal P axis, V-rate 50- 99 RSR' in V1 or V2, Normal Electrocardiogram
== END 2021-11-02 09:50 | disposition home or self-care (01) ==
LOC: RT 09:50
PROVIDERS: PCP Nurse Practitioner Family; Visit Provider Nurse Practitioner Family
DX: U07.1 COVID-19 (principal); R42 Dizziness and giddiness
CPT/HCPCS: 93005; 93010

== ENCOUNTER → 2022-02-09 02:46 | Outpatient (CLI) | payer MEDICAID, SELFPAY ==
--- NOTE | 2022-02-09 06:45 | DI.RAD_ITS ---
Exam(s) XR LUMBAR SPINE COMP W FLEX/EX EXAM: XR LUMBAR SPINE COMP W FLEX/EX CLINICAL HISTORY: ongoing sciatic nerve pain,m54.30. TECHNIQUE: 2D digital imaging was performed. Seven views. Flexion and extension lateral views were performed in addition to the routine views. COMPARISON: No exams were available for comparison FINDINGS: BONES: No fracture or destructive lesion. No evidence of spondylolysis. Vertebral body heights are maintained. No facet hypertrophy identified. DISKS: Intervertebral disc spaces are maintained. ALIGNMENT: Lumbar spinal alignment is within normal limits. There is no evidence of subluxation with flexion or extension. No evidence of scoliosis. SOFT TISSUE: Normal. IMPRESSION: Unremarkable radiographs of the lumbar spine. DATA REPOSITORY: RADIATION DOSE DELIVERED:
--- NOTE | 2022-02-09 06:45 | DI.RAD_ITS ---
Exam(s) XR SACROILIAC JOINTS EXAM: XR SACROILIAC JOINTS CLINICAL HISTORY: ongoing sciatic nerve pain,m54.30. TECHNIQUE: 2D digital imaging was performed. COMPARISON: No exams were available for comparison FINDINGS: Bones: No fracture is present. No bony destructive lesion is seen. Alignment is satisfactory. SI Joint: No fusion, erosions or sclerosis is seen. Soft Tissue: Normal. IMPRESSION: Normal radiographs of the SI Joints. DATA REPOSITORY: RADIATION DOSE DELIVERED:
== END ==
PROVIDERS: PCP Nurse Practitioner Family; Visit Provider Student in an Organized Health Care Education/Training Program
DX: M54.32 Sciatica, left side (principal)
CPT/HCPCS: 72114; 72202

== ENCOUNTER 2022-03-13 13:33 | Emergency (ER) | payer MEDICAID, SELFPAY ==
[2022-03-13 13:37] VITALS: BP 127/62; PULSE 70; RESP 18; TEMP 36.5; O2SAT 97
--- NOTE | 2022-03-13 15:30 | DI.RAD_ITS ---
Exam(s) XR ANKLE RT COMPLETE EXAM: XR ANKLE RT COMPLETE CLINICAL HISTORY: pain after snap. TECHNIQUE: 2D digital imaging was performed. Three views. COMPARISON: No exams were available for comparison FINDINGS: BONES: No acute fracture is present. No bony destructive lesion is seen. JOINTS: The oblique loose suboptimally positioned. There is mild widening of the lateral ankle morti se. SOFT TISSUE: Normal. IMPRESSION: Ankle mortise widening. No evidence of fracture. DATA REPOSITORY: RADIATION DOSE DELIVERED:
[2022-03-13 15:33] VITALS: BP 120/62; PULSE 60; RESP 16; TEMP 36.5; O2SAT 98
--- NOTE | 2022-03-13 15:58 | ED.GENADUL_ITS ---
Discharge Plan Disposition Patient Disposition: HOME Condition: Improving Discharge Details Clinical Impression: Sprain of ankle, right Primary Care Provider: Jud Dumont ED Provider: Rupert Irby Home Meds and New Rx's Prescriptions: Continued epinephrine [EpiPen 2-Paulino] 0.3 mg/0.3 mL auto-injector 0.3 mg IM ONCE Qty: 1 1RF (DME) Space Chamber Plus 1 EACH spacer 1 ea Miscellaneous Q4H PRN Qty: 1 Rx Instructions: use with inhaler as directed albuterol sulfate [ProAir HFA] 90 mcg/actuation HFA aerosol inhaler 2 puff Inhalation Q4H PRN Qty: 1 1RF Rx Instructions: 2 puffs with spacer every 4hr as needed for cough/wheeze acetaminophen 500 mg tablet 500 mg PO Q6H PRN PRN (Reason: pain) Qty: 90 3RF ibuprofen 600 mg tablet 600 mg PO TID PRN (Reason: pain) Qty: 90 3RF levothyroxine 75 mcg capsule 75 mcg PO DAILY Qty: 30 2RF citalopram [Celexa] 20 mg tablet 5 mg PO DAILY Rx Instructions: is tapering off of citalopram. Down to 5mg. Discharge Instructions Instructions: Ankle Sprain (ED) Additional Instructions: Please wear walking boot 3 to 7 days time as needed for healing. Elevate above level of heart and apply ice to reduce pain and swelling. May remove boot for bathing and at bedtime. Return if he has persistent pain greater than 10 days time. Tylenol and ibuprofen as needed Medical Decision Making 22-year-old female who twisted her right ankle and felt medial pain earlier today. It improved somewhat with ice and she was able to walk but with pain. Her x-ray is without evidence of fracture.. Consistent with strain/sprain. Discussed with her home management including use of a low walking boot. There is a question of some mild widening of the mortise on formal review of the x- ray. I discussed with her follow-up in orthopedic clinic to ensure healing. She is stable for discharge to home. HPI General Mode of arrival: ambulatory . Date/Time Provider Initiated Documentation: 03/13/22 15:33 . Limitations to Documentation: no limitations . Information obtained by: patient . History of Present Illness 22 year old F presents to the emergency department with the chief complaint of Right ankle pain after twisting earlier today. Medial discomfort., described as mild, Quality is described as dull and constant, and is localized to the right and lower extremity. Patient reports no radiation. Patient started experiencing this hour(s) and it has been constant. Rest improves symptom(s), Movement worsens symptoms . Patient did receive the following treatments prior to arrival, cold therapy Related Data Home Medications Medication Instructions Recorded Confirmed inhalational spacing device (Space ##1 01/27/16 01/31/22 Chamber Plus) albuterol sulfate 90 mcg/actuation 2 puff inhalation Q4H PRN ##1 05/19/20 03/13/22 aerosol inhaler (ProAir HFA) epinephrine 0.3 mg/0.3 mL 0.3 mg (0.3 mL) IM ONCE ##1 03/09/21 03/13/22 injection, auto-injector (EpiPen 2-Paulino) acetaminophen 500 mg tablet 500 mg PO Q6H PRN PRN pain #90 tabs 08/06/21 03/13/22 ibuprofen 600 mg tablet 600 mg PO TID PRN pain #90 tabs 08/06/21 03/13/22 levothyroxine 75 mcg capsule 75 mcg PO DAILY #30 caps 11/29/21 03/13/22 citalopram 20 mg tablet (Celexa) 5 mg PO DAILY 03/13/22 03/13/22 Previous Rx's Medication Instructions Recorded albuterol sulfate 90 mcg/actuation 2 puff inhalation Q4H PRN ##1 05/19/20 aerosol inhaler (ProAir HFA) epinephrine 0.3 mg/0.3 mL 0.3 mg (0.3 mL) IM ONCE ##1 03/09/21 injection, auto-injector (EpiPen 2-Paulino) acetaminophen 500 mg tablet 500 mg PO Q6H PRN PRN pain #90 tabs 08/06/21 ibuprofen 600 mg tablet 600 mg PO TID PRN pain #90 tabs 08/06/21 levothyroxine 75 mcg capsule 75 mcg PO DAILY #30 caps 11/29/21 Allergies Allergy/AdvReac Type Severity Reaction Status Date / Time kiwi Allergy Intermediate RASH AND Verified 03/13/22 13:39 SWELLING shellfish derived Allergy Intermediate RASH AND Verified 03/13/22 13:39 SWELLING COLD TEMPERATURES AdvReac Swelling/Ed Uncoded 03/13/22 13:39 reena General Stated Complaint: Orthopedic DESTINY: 3 Review of Systems Narrative: 3systems reviewed and otherwise negative, no other injury PFSH All Active Problems (Updated 03/13/22 @ 16:04 by Rupert Irby MD) Sprain of ankle, right (Acute) Left sciatic nerve pain (Acute) Bartholin gland cyst (Acute) Lightheadedness (Acute) COVID (Acute) Acquired hypothyroidism (Chronic 12/10/15) +anti-TPO antibody. Followed by [facility] [place] endo- other labs reassuring Asthma, mild intermittent, well-controlled (Chronic 04/14/15) mainly exercise induced Chronic motor tic (Chronic 01/27/16) Patellar instability of right knee (Acute) S/P MPFL reconstruction: 11/09/2020 S/P Revision MPFL reconstruction: 08/09/2021 Depression (Chronic) Anxiety (Chronic) Medical History Asthma Contraception 12/27/2020. OCPs abnormal uterine bleeding in the past. Patient given info on Nexplanon and Kyleena IUD Food allergy Hx of renal calculi Presence of IUD Kyleena placed Feb 2021 Skin abscess Tonsil stone Urticaria due to cold Family History Mother Diabetes Essential hypertension Father Healthy adult Grandfather Diabetes PGF Essential hypertension MGF Grandmother Essential hypertension MGM Other Essential hypertension MGGF Social History Smoking/Tobacco Use Status: Never Second Hand Exposure: No Smoking risk assessment performed?: Yes Alcohol Intake: current Alcohol Intake frequency: a few times a month Alcohol type: other Drug use: Never Substance use type: does not use Household members: family Pets and animals: Yes Pets and animals: dog(s) Sexually active: No (never) Do you feel safe at home: Yes Do you feel safe in your relationship?: Yes Female Reproductive History Menstrual control method: abstinence (not yet sexually active) History History 0 Para Hx # Term Pregnancies Multiple births Hx # Pregnancies Ectopic pregnancies AB induced Hx Number of Living Children AB spontaneous Exam Narrative Exam Narrative: GEN: awake, alert, oriented 3. Pleasant, well groomed, interactive. HEAD: Normocephalic, atraumatic EYES: PERRL, EOMI EXT: Full ROM, right ankle with medial tenderness, no bruising and normal motor and sensory function. Neuro: Grossly normal neurologic exam, conversant, interactive. Psych: Speech fluent, thoughts congruent, affect normal Course Vital Signs Vital signs: Vital Signs Temperature 36.5 C 03/13/22 13:37 Pulse 70 03/13/22 13:37 Respiratory Rate 18 03/13/22 13:37 Blood Pressure 127/62 03/13/22 13:37 Pulse Oximetry 97 03/13/22 13:37 Temperature 36.5 C 03/13/22 15:33 Temperature Source Tympanic 03/13/22 15:33 Pulse 60 03/13/22 15:33 Respiratory Rate 16 03/13/22 15:33 Respiratory Effort 03/13/22 15:33 Respiratory Depth Normal 03/13/22 15:33 Blood Pressure 120/62 03/13/22 15:33 Blood Pressure Mean 81 03/13/22 15:33 Blood Pressure Position Sitting 03/13/22 15:33 Pulse Oximetry 98 03/13/22 15:33 Oxygen Delivery Method Room Air 03/13/22 15:33 Oxygen Flow Rate 0 03/13/22 15:33 Pain Level 6 03/13/22 13:40 Lab/Test Results Lab/Test Results: POC- Test(urine) Negative
== END 2022-03-13 16:23 | disposition home or self-care (01) ==
PROVIDERS: Emergency Provider Emergency Medicine; PCP Nurse Practitioner Family
DX: S93.491A Sprain of other ligament of right ankle, initial encounter (principal); X50.1XXA Overexertion from prolonged static or awkward postures, initial encounter
CPT/HCPCS: 29515; 81025; 99283; 73610

== ENCOUNTER 2022-06-27 03:42 | Outpatient (CLI) | payer MEDICAID, SELFPAY ==
[2022-06-27 16:42] LABS: Abs Immature Grans 0.02 10^3/uL (0.0-0.06); Absolute Basophil Count 0.05 10^3/uL (0.0-0.2); Absolute Eosinophil Count 0.18 10^3/uL (0.0-0.7); Absolute Lymphocyte Count 2.71 10^3/uL (1.2-3.4); Absolute Monocyte Count 0.42 10^3/uL (0.1-0.8); Basophils % 0.5; Eosinophils % 1.8; HCT 37.3 % (36.0-46.0); HGB 11.7 g/dL (11.2-15.7); Immature Grans % 0.2; Lymphocytes % 27.4; MCH 29.3 pg (27.0-33.0); MCHC 31.4 % (32.0-36.0); MCV 93 fL (80-95); Monocytes % 4.3; Neutrophils % 65.8; Platelet Count 397 10^3/uL (130-400); RDW 13.1 % (11.7-14.6); RDW-SD 44.7 fL; WBC 9.88 10^3/uL (4.4-10.8)
[2022-06-27 17:46] LABS: ALT 17 U/L (14-59); AST 17 U/L (15-37); Alkaline Phosphatase 89 U/L (46-116); Anion Gap 6.4 mmol/L (3-11); BUN 15 mg/dL (7-18); Bilirubin, Total 0.3 mg/dL (0.2-1.0); CO2 28.6 mmol/L (21.0-32.0); CREATININE 0.8 mg/dL (0.55-1.02); Calcium 9.9 mg/dL (8.5-10.1); Chloride 107 mmol/L (98-107); Estimated GFR 106.77 (mL/min/1.73m2); Glucose 96 mg/dL (74-106); Potassium 4.2 mmol/L (3.5-5.1); Sodium 142 mmol/L (136-145); TSH (W/Ref FT4) 1.61 uIU/mL (0.36-3.74); Total Protein 7.4 g/dL (6.4-8.2)
== END 2022-06-27 03:43 | disposition home or self-care (01) ==
LOC: LBO 03:42
PROVIDERS: PCP Nurse Practitioner Family; Visit Provider Nurse Practitioner Family
DX: E03.9 Hypothyroidism, unspecified (principal); Z83.79 Family history of other diseases of the digestive system; F41.8 Other specified anxiety disorders
CPT/HCPCS: 36415; 80053; 84443; 85025

== ENCOUNTER 2022-10-14 07:17 | Emergency (ER) | payer MEDICAID, SELFPAY ==
[2022-10-14 07:31] VITALS: BP 135/55; PULSE 90; RESP 16; TEMP 37; O2SAT 99
[2022-10-14] MEDS: Ibuprofen 600 MG TAB PO (08:18)
[2022-10-14] MEDS: Acetaminophen 325 MG TAB 650 MG PO (08:18)
--- NOTE | 2022-10-14 08:54 | W.ED.GENAD ---
Discharge Plan Disposition Patient Disposition: Home Discharge Details Clinical Impression: Cyst of perineum of female Primary Care Provider: Jud Dumont ED Provider: Karuna Martin Home Meds and New Rx's Prescriptions: Continued citalopram 10 mg tablet 5 mg PO DAILY Qty: 15 5RF norgestimate-ethinyl estradiol [Sprintec (28)] 0.25-35 mg-mcg tablet 1 tab PO DAILY Qty: 84 4RF (DME) Space Chamber Plus 1 EACH spacer 1 ea Miscellaneous Q4H PRN Qty: 1 Rx Instructions: use with inhaler as directed acetaminophen 500 mg tablet 500 mg PO Q6H PRN PRN (Reason: pain) Qty: 90 3RF ibuprofen 600 mg tablet 600 mg PO TID PRN (Reason: pain) Qty: 90 3RF albuterol sulfate [ProAir HFA] 90 mcg/actuation HFA aerosol inhaler 2 puff Inhalation Q4H PRN Qty: 1 1RF Rx Instructions: 2 puffs with spacer every 4hr as needed for cough/wheeze levothyroxine 75 mcg capsule 75 mcg PO DAILY Qty: 30 2RF epinephrine [EpiPen 2-Paulino] 0.3 mg/0.3 mL auto-injector 0.3 mg IM ONCE Qty: 1 1RF Discharge Instructions Additional Instructions: Warm compresses Motrin and Tylenol for pain Clean wound twice daily with warm soapy water If you can take warm baths 1-2 times a day or apply warm facecloth for 10 minutes at a time, and will help this continue to drain You may place gauze or wear a pad to allow it to drain Please follow-up with [facility], you will likely need to have this surgically excised at the discretion of your [facility] provider Return earlier should you have new or worsening complaints Referrals: Negro Bonilla MD [ [facility] STAFF PHYSICIAN] - Alea Aguero MD [ [facility] STAFF PHYSICIAN] - Medical Decision Making Patient is in discomfort from a cyst in the perineal region, will incise and drain No indication for antibiotics at this time We will refer to [facility] for possible surgical excision Return precautions reviewed and patient expressed understanding Medical Records Medical records reviewed: Yes I reviewed the patient's medical records. HPI General Date/Time Provider Initiated Documentation: 10/14/22 08:04. HPI Narrative: This 22-year-old female presents with a cyst in the vaginal region that needs to be drained. States is quite painful. Denies fever or chills. Denies chance of . Related Data Home Medications Medication Instructions Recorded Confirmed inhalational spacing device (Space ##1 01/27/16 10/14/22 Chamber Plus) acetaminophen 500 mg tablet 500 mg PO Q6H PRN PRN pain #90 tabs 08/06/21 10/14/22 ibuprofen 600 mg tablet 600 mg PO TID PRN pain #90 tabs 08/06/21 10/14/22 citalopram 10 mg tablet 5 mg PO DAILY #15 tabs 06/20/22 10/14/22 norgestimate 0.25 mg-ethinyl 1 tab PO DAILY #84 tabs 09/04/22 10/14/22 estradiol 35 mcg tablet (Sprintec (28)) albuterol sulfate 90 mcg/actuation 2 puff inhalation Q4H PRN ##1 09/25/22 10/14/22 aerosol inhaler (ProAir HFA) levothyroxine 75 mcg capsule 75 mcg PO DAILY #30 caps 09/25/22 10/14/22 epinephrine 0.3 mg/0.3 mL 0.3 mg (0.3 mL) IM ONCE ##1 09/28/22 10/14/22 injection, auto-injector (EpiPen 2-Paulino) Previous Rx's Medication Instructions Recorded acetaminophen 500 mg tablet 500 mg PO Q6H PRN PRN pain #90 tabs 08/06/21 ibuprofen 600 mg tablet 600 mg PO TID PRN pain #90 tabs 08/06/21 citalopram 10 mg tablet 5 mg PO DAILY #15 tabs 06/20/22 norgestimate 0.25 mg-ethinyl 1 tab PO DAILY #84 tabs 09/04/22 estradiol 35 mcg tablet (Sprintec (28)) albuterol sulfate 90 mcg/actuation 2 puff inhalation Q4H PRN ##1 09/25/22 aerosol inhaler (ProAir HFA) levothyroxine 75 mcg capsule 75 mcg PO DAILY #30 caps 09/25/22 epinephrine 0.3 mg/0.3 mL 0.3 mg (0.3 mL) IM ONCE ##1 09/28/22 injection, auto-injector (EpiPen 2-Paulino) Allergies Allergy/AdvReac Type Severity Reaction Status Date / Time kiwi Allergy Intermediate RASH AND Verified 10/14/22 07:34 SWELLING shellfish derived Allergy Intermediate RASH AND Verified 10/14/22 07:34 SWELLING COLD TEMPERATURES AdvReac Swelling/Ed Uncoded 10/14/22 07:34 reena General Stated Complaint: RashLesion DESTINY: 4 PFSH All Active Problems (Updated 10/14/22 @ 09:01 by KATE Ayala) Cyst of perineum of female (Acute) Shellfish allergy (Acute) Family history of fatty liver (Acute) Left sciatic nerve pain (Acute) Bartholin gland cyst (Acute) Lightheadedness (Acute) COVID (Acute) Acquired hypothyroidism (Chronic 12/10/15) +anti-TPO antibody. Followed by [facility] [place] endo- other labs reassuring Asthma, mild intermittent, well-controlled (Chronic 04/14/15) mainly exercise induced Chronic motor tic (Chronic 01/27/16) Patellar instability of right knee (Acute) S/P MPFL reconstruction: 11/09/2020 S/P Revision MPFL reconstruction: 08/09/2021 Depression (Chronic) Anxiety (Chronic) Medical History Asthma Contraception 12/27/2020. OCPs abnormal uterine bleeding in the past. Patient given info on Nexplanon and Kyleena IUD Food allergy Hx of renal calculi Presence of IUD Kyleena placed Feb 2021 Skin abscess Tonsil stone Urticaria due to cold Family History Mother Diabetes Essential hypertension Father Healthy adult Grandfather Diabetes PGF Essential hypertension MGF Grandmother Essential hypertension MGM Other Essential hypertension MGGF Social History Smoking/Tobacco Use Status: Never Second Hand Exposure: No Smoking risk assessment performed?: Yes Alcohol Intake: current Alcohol Intake frequency: a few times a month Alcohol type: other Drug use: Never Substance use type: does not use Household members: family Education Level: college Details: [employer] Pets and animals: Yes Pets and animals: dog(s) Sexually active: No (never) Do you feel safe at home: Yes Do you feel safe in your relationship?: Yes Female Reproductive History Menstrual control method: abstinence (not yet sexually active) History History 0 Para Hx # Term Pregnancies Multiple births Hx # Pregnancies Ectopic pregnancies AB induced Hx Number of Living Children AB spontaneous Exam Other: Cyst noted in the perineal region, approximately 1 cm, fluctuant, no erythema, no induration Course Vital Signs Vital signs: Vital Signs Temperature 37.0 C 10/14/22 07:31 Pulse 90 10/14/22 07:31 Respiratory Rate 16 10/14/22 07:31 Blood Pressure 135/55 L 10/14/22 07:31 Pulse Oximetry 99 10/14/22 07:31 Temperature 37.0 C 10/14/22 07:31 Temperature Source Temporal Artery Scan 10/14/22 07:31 Pulse 90 10/14/22 07:31 Respiratory Rate 16 10/14/22 07:31 Respiratory Effort Normal 10/14/22 07:33 Blood Pressure 135/55 L 10/14/22 07:31 Blood Pressure Position Sitting 10/14/22 07:31 Pulse Oximetry 99 10/14/22 07:31 Oxygen Delivery Method Room Air 10/14/22 07:31 Oxygen Flow Rate 0 10/14/22 07:31 Pain Level 7 10/14/22 07:31 Procedures Abscess I/D Site: Other Side (if applicable): Right Local Anesthetic: Lidocaine 1% Amount of anesthesia used (mL): 3 Technique: Incised with #11 Blade Amount of fluid expressed (mL): 8 Irrigation: Yes Packing used?: None Complications: Pain
--- NOTE | 2022-10-14 09:27 | NUR.NOTE ---
Nursing Note: Referal faxed to [facility] for pernieal abscess, recurrent/ within 2 weeks.
== END 2022-10-14 09:28 | disposition home or self-care (01) ==
PROVIDERS: Emergency Provider Physician Assistant; PCP Nurse Practitioner Family
DX: N94.89 Other specified conditions associated with female genital organs and menstrual cycle (principal)
CPT/HCPCS: 10060

== ENCOUNTER 2022-12-20 13:23 | Outpatient (CLI) | payer MEDICAID, SELFPAY ==
--- NOTE | 2022-12-20 13:15 | DI.US_ITS ---
Exam(s) US RENAL EXAM: US RENAL CLINICAL HISTORY: left flank pain, R10.9, hx stone in past, evaluate stone TECHNIQUE: Ultrasound of both kidneys performed using standard protocol. COMPARISON: CT CT RENAL COLIC WO from 07/14/2021 FINDINGS: RIGHT KIDNEY: Measures 10.3 cm in length. No cysts evident. Normal cortical thickness and corticomedullary differen tiation .No solid masses No intrarenal calculi nor hydronephrosis. LEFT KIDNEY: Measures 9.5 cm in length. No cysts evident. Normal cortical thickness and corticomedullary differen tiation. No solids masses. No intrarenal calculi nor hydronephrosis. URINARY BLADDER: Prevoid volume is 375 cc Postvoid volume is 83 cc No shadowing calculi evident in the bladder lumen. No evidence of bladder mass nor diverticuli. Ureterovesical jets: Both identified and appear symmetrical IMPRESSION: 1. No significant ultrasound findings in the kidneys. 2. No significant ultrasound focal ultrasound findings in the urinary bladder. Postvoid volume is 8 3 cc. DATA REPOSITORY:
== END 2022-12-20 13:43 ==
LOC: DI 13:26
PROVIDERS: PCP Nurse Practitioner Family; Visit Provider Physician Assistant
DX: R10.9 Unspecified abdominal pain (principal)
CPT/HCPCS: 76770

== ENCOUNTER 2022-12-20 18:36 | Outpatient (CLI) | payer MEDICAID, SELFPAY ==
[2022-12-20 15:06] LABS: Abs Immature Grans 0.02 10^3/uL (0.0-0.06); Absolute Basophil Count 0.04 10^3/uL (0.0-0.2); Absolute Eosinophil Count 0.13 10^3/uL (0.0-0.7); Absolute Lymphocyte Count 2.07 10^3/uL (1.2-3.4); Absolute Monocyte Count 0.38 10^3/uL (0.1-0.8); Absolute Neutrophil Count 5.79 10^3/uL (1.2-6.7); Basophils % 0.5; Eosinophils % 1.5; HCT 34.8 % (36.0-46.0); HGB 11.2 g/dL (11.2-15.7); Immature Grans % 0.2; Lymphocytes % 24.6; MCH 29.8 pg (27.0-33.0); MCHC 32.2 % (32.0-36.0); MCV 93 fL (80-95); MPV 10.1 fL (8.0-11.0); Monocytes % 4.5; Neutrophils % 68.7; Platelet Count 341 10^3/uL (130-400); RBC 3.76 10^6/uL (3.93-5.22); RDW 13.5 % (11.7-14.6); WBC 8.43 10^3/uL (4.4-10.8)
[2022-12-20 16:02] LABS: BUN 12 mg/dL (7-18); CREATININE 0.7 mg/dL (0.55-1.02); Calcium 9.2 mg/dL (8.5-10.1); Chloride 103 mmol/L (98-107); Estimated GFR 125.33 (mL/min/1.73m2); Glucose 102 mg/dL (74-106); Potassium 4.2 mmol/L (3.5-5.1); Sodium 139 mmol/L (136-145)
[2022-12-20 21:08] LABS: Bilirubin Negative (Negative); Blood Negative (Negative); Clarity Clear (Clear); Glucose Negative (Negative); Ketones Negative (Negative); Leukocyte Esterase Small (Negative); Nitrite Negative (Negative); Urobilinogen 0.2 mg/dL (Up to 0.2); pH 6.5 (5-8)
[2022-12-20 21:39] LABS: Bacteria Few HPF (Negative); C & S Indicated? No/Sq. Contamination; Casts Negative LPF (Negative); Crystals Negative HPF (Negative); Epithelial Cells Many HPF (Negative); Mucus Negative (Negative); RBC 0-2 HPF (0-2)
== END 2022-12-20 18:37 | disposition home or self-care (01) ==
LOC: LBO 18:37
PROVIDERS: PCP Nurse Practitioner Family; Visit Provider Physician Assistant
DX: R10.9 Unspecified abdominal pain (principal); R39.9 Unspecified symptoms and signs involving the genitourinary system
CPT/HCPCS: 36415; 80048; 81003; 81015; 85025

== ENCOUNTER 2022-12-21 16:52 | Outpatient (REF) | payer MEDICAID, SELFPAY ==
[2022-12-21 21:03] LABS: Bilirubin Negative (Negative); Blood Negative (Negative); Clarity Clear (Clear); Glucose Negative (Negative); Ketones Negative (Negative); Leukocyte Esterase Trace (Negative); Nitrite Negative (Negative); Specific Gravity 1.015 (1.005-1.025); Urobilinogen 0.2 mg/dL (Up to 0.2)
[2022-12-21 21:06] LABS: Bacteria Rare HPF (Negative); C & S Indicated? Yes; Casts Negative LPF (Negative); Crystals Negative HPF (Negative); Epithelial Cells Rare HPF (Negative); Mucus Negative (Negative); RBC Negative HPF (0-2); WBC 0-2 HPF (0-5)
== END 2022-12-21 16:53 | disposition home or self-care (01) ==
LOC: LBN 16:52
PROVIDERS: PCP Nurse Practitioner Family; Visit Provider Physician Assistant
DX: R10.32 Left lower quadrant pain (principal); R39.89 Other symptoms and signs involving the genitourinary system; R82.998 Other abnormal findings in urine
CPT/HCPCS: 81003; 81015; 87086

== ENCOUNTER 2023-01-09 03:04 | Emergency (ER) | payer MEDICAID, SELFPAY ==
[2023-01-09 03:07] VITALS: BP 130/69; PULSE 73; RESP 18; TEMP 36.6; O2SAT 97
--- NOTE | 2023-01-09 03:20 | W.ED.GENAD ---
Discharge Plan Disposition Patient Disposition: Home Discharge Details Clinical Impression: Rectal bleeding Primary Care Provider: Angela Andujar ED Provider: Chavo Smith Home Meds and New Rx's Prescriptions: New pantoprazole [Protonix] [address] for susp in packet 40 mg PO DAILY Qty: 30 0RF docusate sodium [Colace] 100 mg capsule 100 mg PO DAILY Qty: 30 0RF No Action citalopram 10 mg tablet 5 mg PO DAILY Qty: 15 5RF levothyroxine 75 mcg capsule 75 mcg PO DAILY Qty: 30 5RF norgestimate-ethinyl estradiol [Sprintec (28)] 0.25-35 mg-mcg tablet 1 tab PO DAILY Qty: 84 4RF tamsulosin [Flomax] 0.4 mg capsule 0.4 mg PO DAILY Qty: 7 0RF (DME) Space Chamber Plus 1 EACH spacer 1 ea Miscellaneous Q4H PRN Qty: 1 Rx Instructions: use with inhaler as directed acetaminophen 500 mg tablet 500 mg PO Q6H PRN PRN (Reason: pain) Qty: 90 3RF ibuprofen 600 mg tablet 600 mg PO TID PRN (Reason: pain) Qty: 90 3RF albuterol sulfate [ProAir HFA] 90 mcg/actuation HFA aerosol inhaler 2 puff Inhalation Q4H PRN Qty: 1 1RF Rx Instructions: 2 puffs with spacer every 4hr as needed for cough/wheeze epinephrine [EpiPen 2-Paulino] 0.3 mg/0.3 mL auto-injector 0.3 mg IM ONCE Qty: 1 1RF Discharge Instructions Instructions: Rectal Bleeding (ED) Additional Instructions: At this time your rectal bleeding seems to have occurred from a small hemorrhoid that was found. Please only stay on the toilet for bowel movements for 10 to 15 minutes maximum. Please keep your stools soft by eating high-fiber diet, drinking plenty of fluids, and taking the Colace medication as directed. Although unlikely, there is a small chance that this could have been caused from gastric irritation from the steroid and ibuprofen use. Please cut down on the ibuprofen/Advil for the next week. Please take your home Maalox as directed, and take the prescribed Protonix as directed. These have been sent to your pharmacy on file. If your bleeding recurs or persists over the next few weeks, you may require further evaluation with colonoscopy for further assessment. If you notice any worsening of your symptoms, or any new symptoms such as vomiting, diarrhea, fever, chills, shortness of breath, chest pain, numbness, weakness, or fainting , please return immediately to the emergency department for reevaluation. Please follow up with your primary care provider as soon as possible for reassessment and reevaluation. As always, it was a pleasure participating in your medical care today. Referrals: Angela Andujar NP [Primary Care Provider] - Medical Decision Making This is a pleasant 22-year-old female who recently had her wisdom teeth removed about 5 days ago, who presents today for a single episode of some bright red blood per rectum. She states that she has been taking steroids, amoxicillin, Advil, and Tylenol over the last few days for her wisdom teeth as prescribed. This has been going well until tonight when she had a bowel movement which was relatively soft, however there was a small quarter sized spot of bright red blood noted on the stool. She denies any burning or significant pain with defecation. She denies any fever or chills. She has not had any significant red substances recently. She does not drink any excessive alcohol. She denies any personal or family history of Crohn's or ulcerative colitis. No history of GI bleeds in the past. No vaginal discharge. No abdominal pain or tenderness whatsoever. She denies any other complaints at this time. No other modifying factors. Exam demonstrates well-appearing oropharynx. Nontender abdomen. Small internal hemorrhoid noted on rectal exam. No bright red blood whatsoever. No mass. No other abnormalities. No findings suggestive of anal fissure based on exam. Symptoms are likely secondary to a small internal hemorrhoid that caused the bleeding, especially as it has had no further problems, however there is a low but potential chance for a gastric ulcer causing symptoms of the patient's steroid and Advil use. We will give Protonix for home use. Will give Colace to keep stools soft. Recommend avoid sitting on the toilet for greater than 10 to 15 minutes. Discussed red flags for which to return. I have extensively reviewed the treatment plan and discharge instructions with the patient and their family. I have addressed all patient concerns at this time. The patient and family was made aware of what symptoms to monitor for that would warrant a return to the emergency department. Discussed the plan with the patient and family, they demonstrate verbal understanding and agreement with our assessment and plan at this time. The documentation in this chart was dictated using [employer] dictation software. Please excuse any dictation errors. HPI General Date/Time Provider Initiated Documentation: 01/09/23 03:08. HPI Narrative: This is a pleasant 22-year-old female who recently had her wisdom teeth removed about 5 days ago, who presents today for a single episode of some bright red blood per rectum. She states that she has been taking steroids, amoxicillin, Advil, and Tylenol over the last few days for her wisdom teeth as prescribed. This has been going well until tonight when she had a bowel movement which was relatively soft, however there was a small quarter sized spot of bright red blood noted on the stool. She denies any burning or significant pain with defecation. She denies any fever or chills. She has not had any significant red substances recently. She does not drink any excessive alcohol. She denies any personal or family history of Crohn's or ulcerative colitis. No history of GI bleeds in the past. No vaginal discharge. No abdominal pain or tenderness whatsoever. She denies any other complaints at this time. No other modifying factors. Related Data Home Medications Medication Instructions Recorded Confirmed inhalational spacing device (Space ##1 01/27/16 12/22/22 Chamber Plus) acetaminophen 500 mg tablet 500 mg PO Q6H PRN PRN pain #90 tabs 08/06/21 12/22/22 ibuprofen 600 mg tablet 600 mg PO TID PRN pain #90 tabs 08/06/21 12/22/22 norgestimate 0.25 mg-ethinyl 1 tab PO DAILY #84 tabs 09/04/22 12/22/22 estradiol 35 mcg tablet (Sprintec (28)) albuterol sulfate 90 mcg/actuation 2 puff inhalation Q4H PRN ##1 09/25/22 12/22/22 aerosol inhaler (ProAir HFA) epinephrine 0.3 mg/0.3 mL 0.3 mg (0.3 mL) IM ONCE ##1 09/28/22 12/22/22 injection, auto-injector (EpiPen 2-Paulino) citalopram 10 mg tablet 5 mg PO DAILY #15 tabs 11/02/22 12/22/22 levothyroxine 75 mcg capsule 75 mcg PO DAILY #30 caps 11/02/22 12/22/22 tamsulosin 0.4 mg capsule (Flomax) 0.4 mg PO DAILY #7 caps 12/20/22 12/22/22 docusate sodium 100 mg capsule 100 mg PO DAILY #30 caps 01/09/23 (Colace) pantoprazole 40 mg granules 40 mg PO DAILY #30 ea 01/09/23 delayed-release for susp in packet (Protonix) Previous Rx's Medication Instructions Recorded acetaminophen 500 mg tablet 500 mg PO Q6H PRN PRN pain #90 tabs 08/06/21 ibuprofen 600 mg tablet 600 mg PO TID PRN pain #90 tabs 08/06/21 norgestimate 0.25 mg-ethinyl 1 tab PO DAILY #84 tabs 09/04/22 estradiol 35 mcg tablet (Sprintec (28)) albuterol sulfate 90 mcg/actuation 2 puff inhalation Q4H PRN ##1 09/25/22 aerosol inhaler (ProAir HFA) epinephrine 0.3 mg/0.3 mL 0.3 mg (0.3 mL) IM ONCE ##1 09/28/22 injection, auto-injector (EpiPen 2-Paulino) citalopram 10 mg tablet 5 mg PO DAILY #15 tabs 11/02/22 levothyroxine 75 mcg capsule 75 mcg PO DAILY #30 caps 11/02/22 tamsulosin 0.4 mg capsule (Flomax) 0.4 mg PO DAILY #7 caps 12/20/22 docusate sodium 100 mg capsule 100 mg PO DAILY #30 caps 01/09/23 (Colace) pantoprazole 40 mg granules 40 mg PO DAILY #30 ea 01/09/23 delayed-release for susp in packet (Protonix) Allergies Allergy/AdvReac Type Severity Reaction Status Date / Time shellfish derived Allergy Intermediate RASH AND Verified 12/22/22 10:44 SWELLING COLD TEMPERATURES AdvReac Swelling/Ed Uncoded 12/22/22 10:44 reena General Stated Complaint: GenMedical DESTINY: 4 Review of Systems All systems reviewed & are unremarkable except as noted in HPI and below PFSH All Active Problems Rectal bleeding (Acute) Acquired hypothyroidism (Chronic 12/10/15) +anti-TPO antibody. Followed by [facility] [place] endo- other labs reassuring Asthma, mild intermittent, well-controlled (Chronic 04/14/15) mainly exercise induced Chronic motor tic (Chronic 01/27/16) Patellar instability of right knee (Acute) S/P MPFL reconstruction: 11/09/2020 S/P Revision MPFL reconstruction: 08/09/2021 Depression (Chronic) Anxiety (Chronic) Lightheadedness (Acute) Left sciatic nerve pain (Acute) Shellfish allergy (Acute) Medical History Asthma Contraception 12/27/2020. OCPs abnormal uterine bleeding in the past. Patient given info on Nexplanon and Kyleena IUD COVID Cyst of perineum of female Family history of fatty liver Food allergy Hx of renal calculi Skin abscess Tonsil stone Urticaria due to cold Family History Mother Diabetes Essential hypertension Father Healthy adult Grandfather Diabetes PGF Essential hypertension MGF Grandmother Essential hypertension MGM Other Essential hypertension MGGF Social History Smoking/Tobacco Use Status: Never Second Hand Exposure: No Smoking risk assessment performed?: Yes Alcohol Intake: current Alcohol Intake frequency: a few times a month Alcohol type: other Drug use: Never Substance use type: does not use Household members: family Education Level: college Details: [employer] Pets and animals: Yes Pets and animals: dog(s) Sexually active: No (never) Do you feel safe at home: Yes Do you feel safe in your relationship?: Yes Female Reproductive History Menstrual control method: pills and abstinence (not yet sexually active) History History 0 Para Hx # Term Pregnancies Multiple births Hx # Pregnancies Ectopic pregnancies AB induced Hx Number of Living Children AB spontaneous Exam Narrative Exam Narrative: 1.Const: Well-nourished, Well-developed, appearing stated age 2.Eyes: PERRL, no conjunctival injection, and symmetrical lids. 3.ENT: Atraumatic external nose and ears. Moist MM. Neck: Symmetric, trachea midline, No thyromegaly. Posterior oropharynx demonstrates no evidence of swelling to suggest complication from wisdom tooth extraction 4.CVS: +S1/S2, No murmurs or gallops. Peripheral pulses 2+ and equal in all extremities. Brisk capillary refill in all extremities. 5.RESP: Unlabored respiratory effort. Clear to auscultation bilaterally. No wheezes rales or rhonchi 6.GI: Soft, Nontender/Nondistended, No hepatosplenomegaly. No guarding or rebound. Rectal exam was performed with female nurse and mother at bedside. Rectal exam demonstrates no bright red blood per rectum. No active bleeding. Small internal hemorrhoid was noted on palpation. No blood at this time. 7.MSK: Normocephalic/Atraumatic, Extremities w/o deformity or ttp No cyanosis or clubbing, Normal movement of all extremities 8.Skin: Warm, Dry. No rashes or lesions. 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 Sensation grossly intact, no focal neurologic deficits. 10.Psych: (AAO) x3. Appropriate mood and affect Course Vital Signs Vital signs: Vital Signs Temperature 36.6 C 01/09/23 03:07 Pulse 73 01/09/23 03:07 Respiratory Rate 18 01/09/23 03:07 Blood Pressure 130/69 01/09/23 03:07 Pulse Oximetry 97 01/09/23 03:07 Temperature 36.6 C 01/09/23 03:07 Temperature Source Oral 01/09/23 03:07 Pulse 73 01/09/23 03:07 Respiratory Rate 18 01/09/23 03:07 Respiratory Effort Normal, Non-Labored 01/09/23 03:12 Respiratory Depth Normal 01/09/23 03:12 Respiratory Pattern Normal 01/09/23 03:12 Blood Pressure 130/69 01/09/23 03:07 Pulse Oximetry 97 01/09/23 03:07 Oxygen Delivery Method Room Air 01/09/23 03:07 Oxygen Flow Rate 0 01/09/23 03:07 Pain Level 0 01/09/23 03:07
[2023-01-09] MEDS: Pantoprazole 40 MG TABCR PO (03:27)
== END 2023-01-09 03:50 | disposition home or self-care (01) ==
LOC: ER 03:34
PROVIDERS: Emergency Provider Student in an Organized Health Care Education/Training Program; PCP Nurse Practitioner Family
DX: K62.5 Hemorrhage of anus and rectum (principal); K64.8 Other hemorrhoids
CPT/HCPCS: 36415; 94640; 99283; 99285; 99282; 99284

== ENCOUNTER 2023-07-30 03:29 | Outpatient (CLI) | payer OTHER, SELFPAY ==
[2023-07-30 16:18] LABS: TSH (W/Ref FT4) 2.96 uIU/mL (0.36-3.74)
== END 2023-07-30 03:30 | disposition home or self-care (01) ==
PROVIDERS: PCP Nurse Practitioner Family; Visit Provider Nurse Practitioner Family
DX: E03.9 Hypothyroidism, unspecified (principal)
CPT/HCPCS: 36415; 84443

== ENCOUNTER → 2023-12-12 01:20 | Outpatient (CLI) | payer OTHER, SELFPAY ==
--- NOTE | 2023-12-12 07:53 | DI.RAD_ITS ---
Exam(s) XR HIP LT COMPLETE AP PELVIS EXAM: XR HIP LT COMPLETE AP PELVIS CLINICAL HISTORY: low back and left hip pain M54.50 LOW BACK PAIN M25.552 PAIN LEFT HIP. TECHNIQUE: 2D digital imaging was performed of the left hip. Two views were obtained. AP pelvis an d lateral left hip views were obtained. COMPARISON: No exams were available for comparison FINDINGS: BONES: No acute fracture is present. No bony destructive lesion is seen. JOINTS: No dislocation present. SOFT TISSUE: Normal. IMPRESSION: Unremarkable radiographs of the left hip. Unremarkable radiographs of the pelvis DATA REPOSITORY: RADIATION DOSE DELIVERED:
--- NOTE | 2023-12-12 07:53 | DI.RAD_ITS ---
Exam(s) XR LUMBAR SPINE COMPLETE EXAM: XR LUMBAR SPINE COMPLETE CLINICAL HISTORY: low back and left hip pain M54.50 LOW BACK PAIN M25.552 PAIN LEFT HIP. TECHNIQUE: 2D digital imaging was performed of the lumbar spine. Five images were obtained. AP, la teral, right oblique, left oblique and L5-S1 spot views were obtained. COMPARISON: No exams were available for comparison FINDINGS: BONES: No fracture or destructive lesion. Vertebral bodies are unremarkable. No facet hypertrophy katrin ntified. DISKS: Intervertebral disc spaces are maintained. ALIGNMENT: Lumbar spinal alignment is within normal limits. No spondylolysis or spondylolisthesis. SOFT TISSUE: Normal. IMPRESSION: Unremarkable radiographs of the lumbar spine. DATA REPOSITORY: RADIATION DOSE DELIVERED:
== END ==
PROVIDERS: PCP Nurse Practitioner Family; Visit Provider Nurse Practitioner Family
DX: M25.552 Pain in left hip (principal); M54.50 Low back pain, unspecified
CPT/HCPCS: 72110; 73502

== ENCOUNTER 2024-01-23 00:42 | Outpatient (CLI) | payer OTHER, SELFPAY ==
--- NOTE | 2024-01-23 06:45 | DI.MRI_ITS ---
Exam(s) MR LOWER JOINT LT W EXAM: MR LOWER JOINT LT W CLINICAL HISTORY: L HIP PAIN, ? LABRAL TEAR,iliotibial band syndrome,trochanteric bursitis TECHNIQUE: Multiplanar multisequence MRI of left hip was performed according to the MR arthrogram pr otocol. COMPARISON: No exams were available for comparison FINDINGS: Bones: There is no evidence of a fracture or avascular necrosis. There is a tear of the posterior s uperior labrum. No bone marrow edema is seen. The articular cartilage appears well maintained. Musculotendinous structures: There is hyperintense signal seen lateral to the greater trochanter wit hin the gluteus medius muscle tendon. This is suspicious for tendinosis. The muscles otherwise show normal signal and size. Soft tissues: Intrapelvic structures demonstrate no significant abnormality. No soft tissue mass or f luid collection is seen. IMPRESSION: 1. Finding of a tear of the posterior superior left labrum. 2. Left gluteus medius tendinosis. DATA REPOSITORY:
[2024-01-23] MEDS: Normal Saline - Diluent 50 ML VIAL 10 ML IJ (09:31)
[2024-01-23] MEDS: Omnipaque 300 MG/ML 10 ML BTL IJ (09:32)
[2024-01-23] MEDS: Bupivacaine 0.5% Pres-Free 10 ML VIAL IJ (09:33)
[2024-01-23] MEDS: Gadoterate meglumine 20 ML VIAL IVP (09:34)
--- NOTE | 2024-01-23 09:43 | DI.RAD_ITS ---
Exam(s) RF HIP ARTHRO RAD W CT OR MRI EXAM: RF HIP ARTHRO RAD W CT OR MRI CLINICAL HISTORY: labral tear lt hip, lt hip pain,trochanteric bursitis,iliotibial band syndr. The Patient has had persistent left hip pain. Noninvasive measures have been tried. To serve as both di agnostic and therapeutic, an injection under fluoroscopy was recommended. The risks of the procedure were discussed with their Orthopedic provider and the patient elected to proceed. TECHNIQUE: 2D and realtime digital imaging was performed. CONTRAST MATERIAL: Iodine based and gadolinium based contrast was used. COMPARISON: No exams were available for comparison FINDINGS: The Patient was greeted in the fluoroscopy room. The correct side was identified and the consent was reviewed with the patient and was signed. The patient was properly positioned on the fluoroscopy ta ble. The left hipwas then prepped with Chloraprep and draped. The left hip injection starting point was identified by the bony landmarks and fluoroscopy. The skin and soft tissue in the tract of the injection was anesthetized with 1% Lidocaine. A spinal needle was then inserted into the left hip katie int at the level of the junction of the head and neck under fluoroscopic guidance. A small amount of Omnipaque solution was injected to confirm intraarticular placement. Once confirmed, the left hip w as injected with 12 cc of a solution containing normal saline, Omnipaque and Dotarem a bandaid was pl aced on the injection site. The patient tolerated the procedure well and left the department in good condition. IMPRESSION: Successful left hip arthrogram injection. RADIATION DOSE DELIVERED: Ka,r=6.73 mGy Ka,r=6.73 mGy
== END 2024-01-23 01:02 ==
LOC: DI 00:43
PROVIDERS: PCP Nurse Practitioner Family; Visit Provider Student in an Organized Health Care Education/Training Program
DX: M76.32 Iliotibial band syndrome, left leg (principal); M70.62 Trochanteric bursitis, left hip
CPT/HCPCS: 27093; 73525; 73722; J0665

== ENCOUNTER 2024-02-04 03:23 | Outpatient (CLI) | payer OTHER, SELFPAY ==
--- NOTE | 2024-02-04 | DI.MRI_ITS ---
Exam(s) MR LOWER JOINT LT W EXAM: MR LOWER JOINT LT W CLINICAL HISTORY: LT HIP PAIN, ? LABRAL TEAR, ILIOTIBIAL BAND SYNDROME TECHNIQUE: Multiplanar multisequence MRI of the knee was performed. COMPARISON: MR MR LOWER JOINT LT W from 01/23/2024 FINDINGS: This fluoroscopic guided therapeutic left hip injection was performed at the request of the orthopedi c surgeon. The patient under mother were consented prior to this procedure. The patient was placed in the supine position on the fluoroscopy table. Using sterile technique and adequate skin-subcutaneous anesthesia, fluoroscopic guidance was used to advance a 22 gauge spinal needle into the left hip joint using an anterior approach. Intra-articular position of the needle was confirmed with injection of 1.5 cc of Omnipaque 300. Thereafter a sterile solution of 5 cc bupivacaine and 80 milligrams Depo-Medrol were injected into th e joint. Also injected is 0.1 cc of Dotarem. The patient tolerated this procedure well and there were no intraprocedural complications. Patient was sent to the MRI suite for additional left hip sequences, to be performed at no additional charge IMPRESSION: 1. Successful left hip therapeutic steroid injection. 2. After this procedure the patient was sent to the MRI suite for sagittal and additional left hip se quences. All of the images from both MRI studies of 01/23/2024 and 02/04/2024 were sent to [facility] for 2nd opinion reading. This is dictated as an addendum to the original 01/23/2024 images so that the patient will not incur additional charges. The official over-read from [facility] radiologist c an be seen on the PACS on the images performed 02/04/2024. DATA REPOSITORY:
[2024-02-04] MEDS: Lidocaine 1% Multi-Dose 50 ML VIAL IJ (11:14)
[2024-02-04] MEDS: Omnipaque 300 MG/ML 10 ML BTL IJ (11:15)
[2024-02-04] MEDS: Bupivacaine 0.5% Pres-Free 10 ML VIAL 8 ML IJ (11:19)
[2024-02-04] MEDS: methylPREDNISolone ACETATE 80 MG/ML VIAL IM (11:20)
[2024-02-04] MEDS: Gadoterate meglumine 20 ML VIAL IVP (11:20)
--- NOTE | 2024-02-04 11:22 | DI.RAD_ITS ---
Exam(s) RF JOINT INJECTION FLUORO GUID EXAM: RF JOINT INJECTION FLUORO GUID CLINICAL HISTORY: L HIP PAIN,fluoro guided injection,trochanteric bursitis,labreal tear lt TECHNIQUE: Fluoroscopic guided left hip joint injection performed by the radiologist CONTRAST MATERIAL: No IV contrast Intra-articular contrast as below COMPARISON: No exams were available for comparison FINDINGS: This fluoroscopic guided left hip steroid injection was performed at the request of the orthopedic koenig kellen. Patient and her mother were consented prior to the procedure. The patient was placed in the supine position on the fluoroscopy table. Using sterile technique and adequate skin-subcutaneous anesthesia, 22 gauge spinal needle was advance d into the hip joint under fluoroscopic guidance using an anterior approach. Intra-articular positio n was confirmed with injection 1.5 cc Omnipaque 300. Thereafter a sterile solution of 5 cc of bupivacaine and 80 mg Depo-Medrol was injected into the intr a-articular space. We also injected 0.1 cc Dotarem The patient tolerated this procedure well and there were no intraprocedural complications. Cumulative Dose: Ka,r=8.83 mGy IMPRESSION: Successful fluoroscopic guided left hip joint steroid injection Please note that following this procedure the patient was sent to the MRI for sagittal sequences whic h were apparently not performed on 01/23/2024. Results will be dictated as an addendum to the prior report so as to not incur an additional MRI júnior to the patient. RADIATION DOSE DELIVERED: Cumulative dose: Ka,r= 8.83 mGy
--- NOTE | 2024-02-04 20:15 | DI.VRAD_ITS ---
PROCEDURE INFORMATION: Exam: MR Left Lower Extremity Joint With Contrast; Hip Exam date and time: 02/04/2024 11:36 AM Age: 23 years old Clinical indication: Other: Lt hip pain, ? labral tear, iliotibial band syndrome TECHNIQUE: Imaging protocol: Magnetic resonance imaging of the left lower extremity joint with contrast. Exam focused on the hip. Total images: 363 Contrast material: DOTAREM; Contrast volume: 0.1 ml; Contrast route: INTRA-ARTICULAR (ARTHROGRAM); COMPARISON: MR LOWER JOINT LT W 01/23/2024 9:49 AM FINDINGS: Bones/joints: No significant bony abnormality. No loose bodies. Labrum: Intra-articular contrast outlines a left hip labral tear involving the superolateral aspect of the labrum measuring 1 cm in the axial plane by 6 mm in the coronal plane by 1.8 cm in the sagittal plane. Smaller similarly positioned right labral tear measuring 5 mm coronal plane. No abnormal signal involving the proximal iliotibial band. Soft tissues: Musculature appears symmetric and unremarkable. Bladder: No bladder wall thickening. Reproductive: Uterus and ovaries appear unremarkable. IMPRESSION: 1. Bilateral hip labral tears. 2. No evidence of proximal iliotibial band syndrome. Dictated and Authenticated by: Rupert Ramon MD. Ordering:TARYN Tom MD
== END 2024-02-04 03:43 ==
LOC: DI 03:23
PROVIDERS: PCP Nurse Practitioner Family; Visit Provider Student in an Organized Health Care Education/Training Program
DX: M76.32 Iliotibial band syndrome, left leg (principal); M70.62 Trochanteric bursitis, left hip; S73.192A Other sprain of left hip, initial encounter
CPT/HCPCS: 20610; 77001; 77002; 73722; J0665; J1010

== ENCOUNTER 2024-03-21 01:02 | Emergency (ER) | payer OTHER, SELFPAY ==
[2024-03-21 01:05] VITALS: BP 123/73; PULSE 92; RESP 18; TEMP 36.6; O2SAT 98
--- NOTE | 2024-03-21 01:15 | W.ED.GENAD ---
Discharge Plan Disposition Patient Disposition: Home Condition: Good Discharge Details Clinical Impression: Perineal abscess, superficial Primary Care Provider: Angela Andujar ED Provider: Fernando Freeman Meds and New Rx's Prescriptions: Continued albuterol sulfate 90 mcg/actuation HFA aerosol inhaler 2 puff Inhalation Q4H PRN Qty: 1 1RF Rx Instructions: 2 puffs with spacer every 4hr as needed for cough/wheeze atomoxetine [Strattera] 10 mg capsule 10 mg PO QAM MDD 10 mg Qty: 28 1RF citalopram 20 mg tablet 20 mg PO DAILY Qty: 90 3RF (DME) Space Chamber Plus 1 EACH spacer 1 ea Miscellaneous Q4H PRN Qty: 1 Rx Instructions: use with inhaler as directed epinephrine [EpiPen 2-Paulino] 0.3 mg/0.3 mL auto-injector 0.3 mg IM ONCE Qty: 1 1RF levothyroxine 75 mcg tablet 75 mcg PO DAILY Qty: 90 3RF norgestimate-ethinyl estradiol 0.25-35 mg-mcg tablet See Rx Instructions .ROUTE .COMPLEX Qty: 84 0RF Dose Instruction: TAKE ONE TABLET BY MOUTH EVERY DAY Rx Instructions: TAKE ONE TABLET BY MOUTH EVERY DAY Discharge Instructions Instructions: How to Do a Sitz Bath, Abscess Incision and Drainage ED Additional Instructions: You were seen for a recurrent perineal abscess which was lanced and drained here in the ED. Would do sitz bath 3-4 times a day to keep the wound open and draining. Follow-up at [facility] on Sunday as planned. Return to ED for any fever, increasing pain, redness or swelling in the area, other concerns. [facility] General Mode of arrival: ambulatory. Date/Time Provider Initiated Documentation: 03/21/24 01:15. Limitations to Documentation: no limitations. Information obtained by: patient and RN notes reviewed. HPI Narrative: Patient presenting to ED with worsening pain and swelling in her perineal area. Patient has previously had abscess in this area. She has been seen by [facility] and discussion regarding surgery has occurred. She has had this lanced once in the ED. Typically gets worse around her menstrual cycle which began today. She has had some pain and discomfort for the last 4 days. Denies any fever. Denies any abdominal pain or pelvic pain. Related Data Home Medications ?Medication ?Instructions ?Recorded ?Confirmed inhalational spacing device (Space ##1 01/27/16 03/21/24 Chamber Plus) epinephrine 0.3 mg/0.3 mL 0.3 mg (0.3 mL) IM ONCE ##1 09/28/22 03/21/24 injection, auto-injector (EpiPen 2-Paulino) levothyroxine 75 mcg tablet 75 mcg PO DAILY #90 tabs 10/09/23 03/21/24 albuterol sulfate 90 mcg/actuation 2 puff inhalation Q4H PRN ##1 02/25/24 03/21/24 aerosol inhaler atomoxetine 10 mg capsule 10 mg PO QAM #28 caps 02/25/24 03/21/24 (Strattera) citalopram 20 mg tablet 20 mg PO DAILY #90 tabs 02/25/24 03/21/24 norgestimate 0.25 mg-ethinyl See Rx Instructions .Route 03/18/24 03/21/24 estradiol 35 mcg tablet .COMPLEX #84 tabs Previous Rx's ?Medication ?Instructions ?Recorded epinephrine 0.3 mg/0.3 mL 0.3 mg (0.3 mL) IM ONCE ##1 09/28/22 injection, auto-injector (EpiPen 2-Paulino) levothyroxine 75 mcg tablet 75 mcg PO DAILY #90 tabs 10/09/23 albuterol sulfate 90 mcg/actuation 2 puff inhalation Q4H PRN ##1 02/25/24 aerosol inhaler atomoxetine 10 mg capsule 10 mg PO QAM #28 caps 02/25/24 (Strattera) citalopram 20 mg tablet 20 mg PO DAILY #90 tabs 02/25/24 norgestimate 0.25 mg-ethinyl See Rx Instructions .Route 03/18/24 estradiol 35 mcg tablet .COMPLEX #84 tabs Allergies Allergy/AdvReac Type Severity Reaction Status Date / Time COLD TEMPERATURES AdvReac Swelling/Ed Uncoded 03/21/24 01:08 reena General 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 VS per triage. HEENT: NC/AT. Normal facial exam. Neck: Supple. Trachea midline. Lungs: Normal respiratory effort. : Swelling and tenderness right lateral perineal/upper thigh area. No vaginal or rectal involvement. Neuro: A+O x 3. Normal speech, mentation. Cranial nerves II - XII grossly intact. No gross motor or sensory deficit. Course Vital Signs Vital signs: Vital Signs Temperature 97.8 F 03/21/24 01:05 Pulse 92 H 03/21/24 01:05 Respiratory Rate 18 03/21/24 01:05 Blood Pressure 123/73 03/21/24 01:05 Pulse Oximetry 98 03/21/24 01:05 Temperature 97.8 F 03/21/24 01:05 Temperature Source Temporal Artery Scan 03/21/24 01:05 Pulse 92 H 03/21/24 01:05 Respiratory Rate 18 03/21/24 01:05 Respiratory Effort Normal, Non-Labored 03/21/24 01:08 Blood Pressure 123/73 03/21/24 01:05 Blood Pressure Position Standing 03/21/24 01:05 Pulse Oximetry 98 03/21/24 01:05 Oxygen Delivery Method Room Air 03/21/24 01:05 Oxygen Flow Rate 0 03/21/24 01:05 Pain Level 8 03/21/24 01:09 Procedures Abscess I/D Site: Lower Extremity Side (if applicable): Right Local Anesthetic: Lidocaine 1% and With Epi Amount of anesthesia used (mL): 2 Technique: Incised with #11 Blade Amount of fluid expressed (mL): 7 Irrigation: No Packing used?: None Medical Decision Making Patient presenting with recurrent superficial abscess in the perineal/upper thigh area not associated with vagina or rectum. Previously had this drained couple years ago. Has follow-up appointment with [facility] on Sunday. Could not tolerate the pain any longer. Please see procedure note. Small brianna made in the dome of the abscess with expression of old blood and purulent material. No surrounding cellulitis or need for antibiotics. Recommend sitz bath 3-4 times a day over the weekend until follow-up. Return precautions provided. PFSH All Active Problems Perineal abscess, superficial (Acute) Iliotibial band syndrome of left side (Acute) Trochanteric bursitis, left hip (Acute) Labral tear of left hip joint (Acute) Lumbar back pain (Acute) Shellfish allergy (Acute) Medical History Anxiety Depression ADHD (attention deficit hyperactivity disorder) Acquired hypothyroidism (12/10/15) +anti-TPO antibody. Followed by [facility] endo- other labs reassuring Family history of fatty liver Hx of renal calculi Contraception 12/27/2020. OCPs abnormal uterine bleeding in the past. Patient given info on Nexplanon and Kyleena IUD Chronic motor tic (01/27/16) Asthma Urticaria due to cold Food allergy Tonsil stone Surgical History Patellar instability of right knee S/P MPFL reconstruction: 11/09/2020 S/P Revision MPFL reconstruction: 08/09/2021 Family History Mother Diabetes Essential hypertension Father Healthy adult Grandfather Diabetes PGF Essential hypertension MGF Grandmother Essential hypertension MGM Other Essential hypertension MGGF Social History Smoking/Tobacco Use Status: Never Second Hand Exposure: No Smoking risk assessment performed?: Yes Alcohol Intake: current Alcohol Intake frequency: a few times a month Alcohol type: other Drug use: Never Substance use type: does not use Household members: family Education Level: college Details: [employer] Pets and animals: Yes Pets and animals: dog(s) Sexually active: No (never) Do you feel safe at home: Yes Do you feel safe in your relationship?: Yes Female Reproductive History Menstrual control method: pills and abstinence (not yet sexually active) History History 0 Para Hx # Term Pregnancies Multiple births Hx # Pregnancies Ectopic pregnancies AB induced Hx Number of Living Children AB spontaneous
[2024-03-21] MEDS: Lidocaine 1% Multi-Dose W/EPI 1/100,000 10 ML VIAL IJ (01:25)
[2024-03-21] MEDS: Acetaminophen 500 MG TAB 1000 MG PO (01:29)
[2024-03-21] MEDS: Ibuprofen 600 MG TAB PO (01:29)
== END 2024-03-21 01:55 | disposition home or self-care (01) ==
LOC: ER 01:59
PROVIDERS: Emergency Provider Emergency Medicine; PCP Nurse Practitioner Family
DX: L02.215 Cutaneous abscess of perineum (principal)
CPT/HCPCS: 10060; J2004

== ENCOUNTER 2024-06-06 00:55 | Outpatient (CLI) | payer OTHER, SELFPAY ==
[2024-06-06 08:01] LABS: Abs Immature Grans 0.02 10^3/uL (0.0-0.06); Absolute Basophil Count 0.05 10^3/uL (0.0-0.2); Absolute Eosinophil Count 0.31 10^3/uL (0.0-0.7); Absolute Lymphocyte Count 2.03 10^3/uL (1.2-3.4); Absolute Monocyte Count 0.32 10^3/uL (0.1-0.8); Absolute Neutrophil Count 5.06 10^3/uL (1.2-6.7); Basophils % 0.6 %; HCT 36.1 % (36.0-46.0); HGB 11.6 g/dL (11.2-15.7); Immature Grans % 0.3 %; Lymphocytes % 26.1 %; MCH 30.7 pg (27.0-33.0); MCHC 32.1 % (32.0-36.0); MCV 96 fL (80-95); MPV 10.1 fL (8.0-11.0); Monocytes % 4.1 %; Neutrophils % 64.9 %; Platelet Count 380 10^3/uL (130-400); RBC 3.78 10^6/uL (3.93-5.22); RDW 12.7 % (11.7-14.6); RDW-SD 44.1 fL; WBC 7.79 10^3/uL (4.4-10.8)
[2024-06-06 08:27] LABS: Hemoglobin A1C 5.1 % (<5.7)
[2024-06-06 09:05] LABS: Iron 59 ug/dL (50-170); Total Iron Binding Capacity 516 ug/dL (250-450); Transferrin Sat 11 % (15-50)
[2024-06-06 09:19] LABS: ALT 16 U/L (14-59); AST 11 U/L (15-37); Albumin 3.2 g/dL (3.4-5.0); Alkaline Phosphatase 92 U/L (46-116); Anion Gap 9.8 mmol/L (3-11); BUN 13 mg/dL (7-18); Bilirubin, Total 0.29 mg/dL (0.2-1.0); CO2 28.2 mmol/L (21.0-32.0); CREATININE 0.8 mg/dL (0.55-1.02); Calculated LDL 93 mg/dL (<100); Chloride 104 mmol/L (98-107); Cholesterol 197 mg/dL (<200); Estimated GFR 105.45 (mL/min/1.73m2); Ferritin 13 ng/mL (8-252); Glucose 92 mg/dL (74-106); HDL Cholesterol 86 mg/dL (40-60); Potassium 4.4 mmol/L (3.5-5.1); Sodium 142 mmol/L (136-145); TSH (W/Ref FT4) 4.61 uIU/mL (0.36-3.74); Triglyceride 93 mg/dL (<150); Vitamin B12 548 pg/mL (193-986)
[2024-06-06 09:23] LABS: Folate > 20.0 ng/mL (8.6-20.0)
[2024-06-06 09:40] LABS: FREE T4 1.11 ng/dL (0.76-1.46)
[2024-06-06 17:58] LABS: Thyroglobulin Antibody 79 U/mL (<=60); Thyroperoxidase Antibody 1235 U/mL (<=60)
[2024-06-09 12:03] LABS: IgA 104 mg/dL (85-499); Interpretation (See Note); Tissue Transglutaminase IgA <4.0 CU (<20.0)
== END 2024-06-06 00:56 | disposition home or self-care (01) ==
LOC: LBO 00:55
PROVIDERS: PCP Nurse Practitioner Family; Visit Provider Nurse Practitioner Family
DX: Z00.00 Encounter for general adult medical examination without abnormal findings (principal); R53.83 Other fatigue; L85.3 Xerosis cutis; F32.9 Major depressive disorder, single episode, unspecified; E07.9 Disorder of thyroid, unspecified; R19.4 Change in bowel habit
CPT/HCPCS: 36415; 80053; 80061; 82306; 82784; 83516; 86376; 82607; 82728; 82746; 83036; 83540; 83550; 84439; 84443; 85025

== ENCOUNTER 2024-10-16 08:49 | Outpatient (CLI) | payer OTHER, SELFPAY ==
[2024-10-16 09:56] LABS: TSH (W/Ref FT4) 2.32 uIU/mL (0.36-3.74)
== END 2024-10-16 08:50 | disposition home or self-care (01) ==
LOC: LBO 08:50
PROVIDERS: PCP Nurse Practitioner Family; Visit Provider Nurse Practitioner Family
DX: E03.9 Hypothyroidism, unspecified (principal)
CPT/HCPCS: 36415; 84443

== ENCOUNTER 2024-12-17 14:11 | Outpatient (REF) | payer OTHER, SELFPAY ==
[2024-12-18 11:43] LABS: Campylobacter PCR Negative (Negative); Shiga Toxin PCR Negative (Negative); Shigella/Enteroinvasive Ecoli Negative (Negative)
== END 2024-12-17 14:12 | disposition home or self-care (01) ==
LOC: LBN 14:11
PROVIDERS: PCP Nurse Practitioner Family; Visit Provider Family Medicine
DX: R19.7 Diarrhea, unspecified (principal)
CPT/HCPCS: 87015; 87269; 87272; 87505

== ENCOUNTER 2024-12-17 19:51 | Emergency (ER) | payer OTHER, SELFPAY ==
[2024-12-17] VITALS (13 sets, daily range): BP systolic 114–123; BP diastolic 70–81; PULSE 69–96; RESP 20; TEMP 37.2; O2SAT 96–100
[2024-12-17 20:20] LABS: Glucose Negative (Negative)
[2024-12-17] MEDS: Ondansetron 4 MG/2 ML VIAL IVP (21:06)
[2024-12-17] MEDS: Lactated Ringers 1,000 ML 1000 ML IV (21:06)
[2024-12-17 21:11] LABS: Abs Immature Grans 0.03 10^3/uL (0.0-0.06); HCT 38.6 % (36.0-46.0); HGB 12.8 g/dL (11.2-15.7); Immature Grans % 0.3 %; MCH 29.9 pg (27.0-33.0); MCHC 33.2 % (32.0-36.0); MCV 90 fL (80-95); MPV 10.2 fL (8.0-11.0); Platelet Count 436 10^3/uL (130-400); RBC 4.28 10^6/uL (3.93-5.22); RDW 11.7 % (11.7-14.6); RDW-SD 38.5 fL; WBC 10.25 10^3/uL (4.4-10.8)
[2024-12-17 21:19] LABS: ALT 25 U/L (14-59); AST 16 U/L (15-37); Albumin 3.5 g/dL (3.4-5.0); Alkaline Phosphatase 101 U/L (46-116); Anion Gap 10.7 mmol/L (3-11); BUN 8 mg/dL (7-18); Bilirubin, Total 0.4 mg/dL (0.2-1.0); CO2 23.3 mmol/L (21.0-32.0); Calcium 8.7 mg/dL (8.5-10.1); Chloride 105 mmol/L (98-107); Estimated GFR 128.46 (mL/min/1.73m2); Glucose 103 mg/dL (74-106); Lipase 26 U/L (<78); Magnesium 2.2 mg/dL (1.8-2.4); Potassium 3.6 mmol/L (3.5-5.1); Sodium 139 mmol/L (136-145); Total Protein 7.3 g/dL (6.4-8.2)
[2024-12-17] MEDS: Omnipaque 350 MG/ML 100 ML BTL IJ (21:43)
[2024-12-17] MEDS: Normal Saline - Diluent 50 ML VIAL IJ (21:44)
--- NOTE | 2024-12-17 21:50 | DI.CT_ITS ---
Exam(s) CT ABDOMEN PELVIS W EXAM: CT ABDOMEN PELVIS W CLINICAL HISTORY: Severe diarrhea, abd pain. TECHNIQUE: Imaging Protocol: Axial computed tomography images with coronal and sagittal reformatted images were created and reviewed CONTRAST MATERIAL: Intravenous: Omnipaque-350 100cc Oral: None COMPARISON: CT CT RENAL COLIC WO from 07/14/2021 FINDINGS: VISUALIZED LUNG BASES: No nodules nor pleural effusions evident. ABDOMEN: There is no ascites. LIVER: There are no focal hepatic lesions evident. No dilated intrahepatic ducts. GALLBLADDER/BILIARY: Cholelithiasis noted. Gallbladder is mildly distended. There is some mild gallbladder wall thickening and enhancement. The CBD is not dilated. PANCREAS: No evidence of pancreatic mass nor dilatation of the pancreatic duct. SPLEEN: Spleen is not enlarged. No obvious intrasplenic lesions. Splenic and portal veins are patent. ADRENALS: There are no significant adrenal masses. KIDNEYS:Both kidneys appear unremarkable. Presently no calculi nor hydronephrosis. No cysts nor solid renal masses.. ABDOMINAL AORTA: Abdominal aorta is not enlarged. LYMPH NODES:There is no retroperitoneal nor paraaortic adenopathy. ABDOMINAL WALL: No evidence of significant anterior abdominal wall nor inguinal hernia. GI: There is no evidence of bowel obstruction, free air, nor abscess. PELVIS: GI: The cecum is low-lying in the pelvis. There is no evidence of appendicitis. There is fluid in the right-side of the colon. There is no significant diverticular disease in the colon.No evidence of sigmoid diverticulitis. LYMPH NODES: There is no intrapelvic nor inguinal adenopathy. REPRODUCTIVE: Uterus and ovaries appear age-appropriate and there is no free fluid in the pelvis. URINARY BLADDER: Pelvic ureters are not dilated. No significant focal findings in the bilateral bladder is mostly collapsed. OSSEOUS: No fractures and no significant osseous lesions. IMPRESSION: 1. Some fluid is noted in the right-side of the colon, possibly associated with diarrhea state. No obvious colitis appearance. There is also some fluid in normal caliber small bowel loops. There is no evidence of small bowel obstruction, free air, nor ascites. 2. No evidence of appendicitis nor diverticulitis. 3. Cholelithiasis/gallstones are again noted. Gallbladder is moderately distended and gallbladder wall is slightly thickened. Recommend follow-up ultrasound. CBD and intrahepatic ducts are not dilated. 4.No renal calculi nor hydronephrosis (as was present on the left side on the prior CT scan of June 2021). Called by myself to ER 12/17/2024 at 10:12 p.m. RADIATION DOSE DELIVERED: 1,238.27mGy.cm Total DLP DATA REPOSITORY: All CT scans at this facility are submitted to the National Radiology Data Registry (NRDR) Dose Index Registry (DIR) with the [employer] (ACR). RADIATION OPTIMIZATION: All CT scans at this facility use at least one of these dose optimization techniques: automated exposure control; mA and/or kV adjustment per patient size (includes targeted exams where dose is matched to clinical indication); or iterative reconstruction.
[2024-12-17 22:03] LABS: EPI 027-NAP1-B1 PRESUMPTIVE NEGATIVE
--- NOTE | 2024-12-17 22:22 | DI.VRAD_ITS ---
PROCEDURE INFORMATION: Exam: CT Abdomen And Pelvis With Contrast Exam date and time: 12/17/2024 9:41 PM Age: 24 years old Clinical indication: Abdominal pain; Generalized; Severe diarrhea, abd pain TECHNIQUE: Imaging protocol: Computed tomography of the abdomen and pelvis with contrast. Radiation optimization: All CT scans at this facility use at least one of these dose optimization techniques: automated exposure control; mA and/or kV adjustment per patient size (includes targeted exams where dose is matched to clinical indication); or iterative reconstruction. Contrast material: [id number]; Contrast volume: 100 ml; Contrast route: INTRAVENOUS (IV); COMPARISON: CT RENAL COLIC WO 07/14/2021 9:44 PM FINDINGS: Liver: Normal. No mass. Gallbladder and biliary ducts: Cholesterol gallstones identified in the gallbladder. Pericholecystic edema noted suggesting acute cholecystitis. Please correlate with ultrasound examination of the gallbladder. Pancreas: Normal. No ductal dilation. Spleen: Normal. No splenomegaly. Adrenal glands: Normal. No mass. Kidneys and ureters: Normal. No hydronephrosis. Stomach and bowel: Unremarkable. No obstruction. No mucosal thickening. Appendix: No evidence of appendicitis. Intraperitoneal space: Unremarkable. No free air. No significant fluid collection. Vasculature: Unremarkable. No abdominal aortic aneurysm. Lymph nodes: Unremarkable. No enlarged lymph nodes. Urinary bladder: Unremarkable as visualized. Reproductive: Bilateral adnexal cysts likely ovarian in etiology. Bones/joints: Unremarkable. No acute fracture. Soft tissues: Unremarkable. IMPRESSION: Cholelithiasis with findings suggesting acute cholecystitis. Please correlate with ultrasound examination of the gallbladder. Dictated and Authenticated by: Christian Neves MD. Orderin [facility] Andrew Barbosa MD
--- NOTE | 2024-12-17 22:46 | ED.GENADUL_ITS ---
Discharge Plan Disposition Patient Disposition: Home Condition: Stable Discharge Details Clinical Impression: Diarrhea Primary Care Provider: Angela Andujar ED Provider: Chelsey Woodson Home Meds and New Rx's Prescriptions: New ciprofloxacin HCl 500 mg tablet 500 mg PO BID 4 Days Qty: 8 0RF No Action albuterol sulfate 90 mcg/actuation HFA aerosol inhaler 2 puff Inhalation Q4H PRN Qty: 1 1RF Rx Instructions: 2 puffs with spacer every 4hr as needed for cough/wheeze citalopram 20 mg tablet 20 mg PO DAILY Qty: 90 3RF norgestimate-ethinyl estradiol 0.25-35 mg-mcg tablet 1 tab PO DAILY Qty: 84 4RF metformin 500 mg tablet extended release 24 hr 500 mg PO DAILY Qty: 90 1RF atomoxetine [Strattera] 10 mg capsule 10 mg PO QAM MDD 10 mg Qty: 28 1RF epinephrine [EpiPen 2-Paulino] 0.3 mg/0.3 mL auto-injector 0.3 mg IM ONCE Qty: 1 1RF levothyroxine 75 mcg tablet 75 mcg PO DAILY Qty: 90 3RF ondansetron 4 mg tablet,disintegrating 4 mg PO Q6H PRN (Reason: nausea and vomiting) Qty: 20 0RF (DME) Space Chamber Plus 1 EACH spacer 1 ea Miscellaneous Q4H PRN Qty: 1 Rx Instructions: use with inhaler as directed ferrous sulfate 325 mg (65 mg iron) tablet 325 mg PO QDAY Qty: 90 3RF Rx Instructions: Take 1 tablet once a day with your vitamin c tirzepatide (weight loss) 5 mg/0.5 mL pen injector 5 mg subcut QWEEK Qty: 2 0RF Rx Instructions: TIRZEPATIDE Concentration: Tirzepatide 25mg/mL + Hydroxocobalamin 2.5 mg/mL solution Tirzepatide + Hydroxocobalamin for compounding. Patient requires additional drug component to decrease risk of side effects of fatigue Week 1-4 Inject 0.1mL once weekly Week 5-8 Inject 0.2mL once weekly Week 9-12 Inject 0.3mL once weekly Week 13-16 Inject 0.4 mL once weekly Week 17-20 Inject 0.0.5mL once weekly Week 21+ Inject 0.6mL once weekly Discharge Instructions Instructions: Diarrhea, Adult ED Additional Instructions: You were seen in the emergency department today for evaluation of abdominal cramping and diarrhea. In our department you had a full physical examination performed, had reassuring laboratory studies and received fluids and medications for management of your nausea and pain. Your CT scan shows evidence of your diarrheal illness but no acute surgical abnormalities, you do have gallstones and will need to follow-up with a general surgeon if you start to develop right upper quadrant abdominal pain after eating. As we discussed, antibiotic use and diarrhea is often not helpful, and can sometimes be harmful. Your C. difficile test was negative. Your stool culture is pending and you will be contacted with any positive results that require you to change your medication. Given the frequency of your bowel movements is not unreasonable for us to start you on a short course of antibiotics. You received your first days worth of medication here in the emergency department and the rest was sent to your pharmacy. Please take all this medication until it is gone, even if you start to feel better. Continue your probiotic, and follow the brat diet (bananas, rice, apples, and toast). Please follow-up with your primary care provider in the next few days to discuss this visit and any symptoms that change, worsen, or persist. Thank you for allowing us to be part of your care. HPI General Mode of arrival: ambulatory . Date/Time Provider Initiated Documentation: 12/17/24 20:33 . Limitations to Documentation: no limitations . Information obtained by: patient, family and old records reviewed . HPI Narrative: This is a 24-year-old female patient with a history of IBS, hypothyroidism, and ADHD, presenting for evaluation of diarrhea. The patient reports that she began to have watery diarrhea, greater than 10 episodes per day yesterday. She reports that she initially thought that this might be due to her Zepbound, which she has been taking for 6 weeks, and takes on Sundays. She states that she has been trying to maintain her hydration, has had some abdominal cramping and nausea but no vomiting. She has been swimming but has not swallowed any untreated water, nobody else in her home has similar symptoms, she has not been recently hospitalized or on antibiotics. The patient was seen at the urgent care and counseled on taking Imodium and conservative management with hydration and the brat diet. She presents today for reevaluation given her ongoing abdominal pain and her concern that her stool culture, which was obtained in the outpatient environment today, we will not result for several days. Related Data Home Medications ?Medication ?Instructions ?Recorded ?Confirmed inhalational spacing device (Space ##1 01/27/16 Chamber Plus) albuterol sulfate 90 mcg/actuation 2 puff inhalation Q 4H PRN ##1 02/25/24 12/17/24 aerosol inhaler citalopram 20 mg tablet 20 mg PO DAILY #90 tabs 10/0 12/1112/17/24 norgestimate 0.25 mg-ethinyl 1 tab PO DAILY #84 tabs 1 05/24/23 12/17/24 estradiol 0.035 mg tablet ferrous sulfate 325 mg (65 mg 325 mg PO QDAY #90 tabs 06/09/24 12/17/24 iron) tablet metformin 500 mg tablet,extended 500 mg PO DAILY #90 t abs 09/15/24 12/17/24 release 24 hr atomoxetine 10 mg capsule 10 mg PO QAM #28 caps 12/17/24 (Strattera) epinephrine 0.3 mg/0.3 mL 0.3 mg (0.3 mL) IM ONCE ##1 11/17/24 12/17/24 injection, auto-injector (EpiPen 2-Paulino) levothyroxine 75 mcg tablet 75 mcg PO DAILY #90 tabs 0 11/17/24 12/17/24 ondansetron 4 mg disintegrating 4 mg PO Q6H PRN nausea and 11/17/24 12/17/24 tablet vomiting #20 tabs tirzepatide (weight loss) 5 mg/0.5 5 mg (0.5 mL) subcu t QWEEK Obesity 12/01/24 12/17/24 mL subcutaneous pen injector #2 mL ciprofloxacin HCl 500 mg tablet 500 mg PO BID 4 days # 8 tabs 12/17/24 Previous Rx's ?Medication ?Instructions ?Recorded albuterol sulfate 90 mcg/actuation 2 puff inhalation Q 4H PRN ##1 02/25/24 aerosol inhaler citalopram 20 mg tablet 20 mg PO DAILY #90 tabs 100 12/11 norgestimate 0.25 mg-ethinyl 1 tab PO DAILY #84 tabs 1 05/24/23 estradiol 0.035 mg tablet ferrous sulfate 325 mg (65 mg 325 mg PO QDAY #90 tabs 06/09/24 iron) tablet metformin 500 mg tablet,extended 500 mg PO DAILY #90 t abs 09/15/24 release 24 hr atomoxetine 10 mg capsule 10 mg PO QAM #28 caps (Strattera) epinephrine 0.3 mg/0.3 mL 0.3 mg (0.3 mL) IM ONCE ##1 11/17/24 injection, auto-injector (EpiPen 2-Paulino) levothyroxine 75 mcg tablet 75 mcg PO DAILY #90 tabs 0 11/17/24 ondansetron 4 mg disintegrating 4 mg PO Q6H PRN nausea and 11/17/24 tablet vomiting #20 tabs tirzepatide (weight loss) 5 mg/0.5 5 mg (0.5 mL) subcu t QWEEK Obesity 12/01/24 mL subcutaneous pen injector #2 mL ciprofloxacin HCl 500 mg tablet 500 mg PO BID 4 days # 8 tabs 12/17/24 Allergies Allergy/AdvReac Type Severity Reaction Status Date / Time COLD TEMPERATURES AdvReac Swelling/Ed Uncoded 12/17/24 20:03 reena General Stated Complaint: Abd Prob DESTINY: 3 Exam Narrative Exam Narrative: Gen: Awake and alert, in no apparent distress HEENT: Non-icteric sclera Neck: Supple Lungs: No apparent respiratory distress, normal respiratory effort. CV: Appears well perfused, strong distal pulses, regular rate and rhythm Abdomen: Non-distended, soft, tender to palpation in the periumbilical region without rigidity, rebound, or guarding. Johnson sign negative MSK: Moves 4 extremities without apparent limitation in ROM Skin: Visualized skin without rashes, cyanosis. Neuro: Normal Gait, no obvious focal deficits or facial asymmetry. Speaks in full, clear sentences. Psych: Appropriate for situation. Course Vital Signs Vital signs: Vital Signs Temperature 37.2 C 12/17/24 20:04 Pulse 96 H 12/17/24 20:04 Respiratory Rate 20 12/17/24 20:04 Blood Pressure 123/81 12/17/24 20:04 Pulse Oximetry 96 12/17/24 20:04 Temperature 37.2 C 12/17/24 20:09 Temperature Source Oral 12/17/24 20:09 Pulse 72 12/17/24 22:31 Respiratory Rate 20 12/17/24 20:09 Blood Pressure 119/72 12/17/24 22:31 Blood Pressure Mean 85 12/17/24 22:31 Blood Pressure Position Sitting 12/17/24 20:09 Pulse Oximetry 99 12/17/24 22:31 Oxygen Delivery Method Room Air 12/17/24 20:09 Oxygen Flow Rate 0 12/17/24 20:09 Pain Level 3 12/17/24 20:09 Lab/Test Results Lab/Test Results: Laboratory Tests Range/Units 12/17/24 12/17/24 12/17/24 19:57 20:55 21:11 WBC (4.4-10.8) 10^3/uL 10.25 RBC (3.93-5.22) 10^6/uL 4.28 Hgb (11.2-15.7) g/dL 12.8 Hct (36.0-46.0) % 38.6 MCV (80-95) fL 90 MCH (27.0-33.0) pg 29.9 MCHC (32.0-36.0) % 33.2 RDW (11.7-14.6) % 11.7 Plt Count (130-400) 10^3/uL 436 H MPV (8.0-11.0) fL 10.2 Immature Gran % % 0.3 Neutrophils % % 80.3 Lymphocytes % % 13.6 Monocytes % % 4.5 Eosinophils % % 1.2 Basophils % % 0.1 Nucleated RBC % (0.0-0.3) % 0.0 Absolute Neutrophils (1.2-6.7) 10^3/uL 8.24 H Absolute Lymphocytes (1.2-3.4) 10^3/uL 1.39 Absolute Monocytes (0.1-0.8) 10^3/uL 0.46 Absolute Eosinophils (0.0-0.7) 10^3/uL 0.12 Absolute Basophils (0.0-0.2) 10^3/uL 0.01 Sodium (136-145) mmol/L 139 Potassium (3.5-5.1) mmol/L 3.6 Chloride (98-107) mmol/L 105 Carbon Dioxide (21.0-32.0) mmol/L 23.3 Anion Gap (3-11) mmol/L 10.7 BUN (7-18) mg/dL 8 Creatinine (0.55-1.02) mg/dL 0.6 Est GFR (CKD-EPI 2020) (mL/min/1.73m2) 128.46 Glucose (74-106) mg/dL 103 Calcium (8.5-10.1) mg/dL 8.7 Magnesium (1.8-2.4) mg/dL 2.2 Total Bilirubin (0.2-1.0) mg/dL 0.4 AST (15-37) U/L 16 ALT (14-59) U/L 25 Alkaline Phosphatase (46-116) U/L 101 Total Protein (6.4-8.2) g/dL 7.3 Albumin (3.4-5.0) g/dL 3.5 Lipase (<78) U/L 26 Urine Color (Yellow) Yellow Urine Clarity (Clear) Clear Urine pH (5-8) 5.5 Ur Specific [place] (1.005-1.025) 1.020 Urine Protein (Neg-Trace) mg/dL Negative Urine Ketones (Negative) mg/dL Negative Urine Blood (Negative) Negative Urine Nitrite (Negative) Negative Urine Bilirubin (Negative) Negative Urine Urobilinogen (Up to 0.2) mg/dL 0.2 Ur Leukocyte Esterase (Negative) Negative Urine Glucose (Negative) mg/dL Negative Stl C.difficile Tox PCR (Negative) Negative POC- Test(urine) Negative Medical Decision Making This is a 24-year-old female patient presenting for evaluation of nausea with diarrhea and abdominal cramping. My differential includes but is not limited to gastroenteritis, certainly considered infectious and parasitic bacteria, as well as medication effect, IBS, IBD. Considered metabolic electrolyte derangement, dehydration and kidney injury. The patient has no recent hospitalizations but C. difficile was certainly considered. Considered intra-abdominal pathology including pancreatitis, cholecystitis, appendicitis, diverticulitis, and consider urinary tract infection. We will provide the patient with IV fluids for rehydration, Zofran, Tylenol, and Toradol for symptomatic management, and after shared decision making we will proceed with laboratory studies to include CBC, CMP, magnesium, UA, urine , and lipase. I will send a C. difficile toxin. We will obtain a CT abdomen pelvis to better characterize any abnormalities which could explain the patient's symptoms. -I independently interpreted the laboratory studies, which show no significant leukocytosis, anemia, or thrombocytopenia. The chemistry panel is without evidence of electrolyte abnormality, kidney dysfunction, or liver injury. Lipase is low, C. difficile is negative, urinalysis noninfectious, and U is negative. CT scan reviewed by myself, the patient has gallstones with some mild gallbladder wall thickening, but in the absence of liver enzyme abnormalities and right upper quadrant pain I do not have strong clinical suspicion for cholecystitis. I did on awake counselor the patient that she will require outpatient follow-up with general surgery especially if she starts to develop postprandial right upper quadrant pain. Fluid-filled bowel loops associated with her diarrhea but no evidence for obstruction, colitis, or other acute abnormalities. On reassessment the patient has been able to tolerate some oral intake, and we discussed the utility of antibiotics in nonbloody diarrhea. This patient has a relative indication for antibiosis (frequency of diarrhea greater than 7 times per day) and is desiring of antibiosis, which is not unreasonable at this time. I did on awake counselor her to continue her probiotics, and she will be contacted if her stool culture requires a medication change. She was provided with her first day of Cipro and a prescription for same. At this time, the patient has had a full medical evaluation and is safe for discharge to home. They are hemodynamically stable, ambulatory, and tolerating PO. They are understanding of the follow-up plan and return precautions. They left our facility without incident. Chelsey Woodson MD [facility] All Active Problems (Updated 12/17/24 @ 22:46 by Chelsey Woodson MD) Diarrhea (Acute) Gastroenteritis (Acute) Acquired hypothyroidism (Acute 12/10/15) Obesity, morbid, BMI 40.0-49.9 (Acute) ADHD (attention deficit hyperactivity disorder) (Acute) Hidradenitis suppurativa (Acute) Iliotibial band syndrome of left side (Acute) Trochanteric bursitis, left hip (Acute) Labral tear of left hip joint (Acute) Lumbar back pain (Acute) Shellfish allergy (Acute) Medical History (Updated 12/17/24 @ 22:46 by Chelsey Woodson MD) Anxiety Depression Family history of fatty liver Hx of renal calculi Contraception Currently on OCPs IUD with abnormal uterine bleeding. Chronic motor tic (09/08/16) Asthma Urticaria due to cold Food allergy Tonsil stone Surgical History Patellar instability of right knee S/P MPFL reconstruction: 11/09/2020 S/P Revision MPFL reconstruction: 08/09/2021 Family History Mother Diabetes Essential hypertension Father Healthy adult Grandfather Diabetes PGF Essential hypertension MGF Grandmother Essential hypertension MGM Other Essential hypertension MGGF Social History Smoking/Tobacco Use Status: Never Second Hand Exposure: No Smoking risk assessment performed?: Yes Alcohol Intake: current Alcohol Intake frequency: a few times a month Alcohol type: other Drug use: Never Substance use type: does not use Household members: family Education Level: college Details: [employer] Pets and animals: Yes Pets and animals: dog(s) Sexually active: No (never) Do you feel safe at home: Yes Do you feel safe in your relationship?: Yes Female Reproductive History Menstrual control method: pills and abstinence (not yet sexually active) History History 0 Para Hx # Term Pregnancies Multiple births Hx # Pregnancies Ectopic pregnancies AB induced Hx Number of Living Children AB spontaneous
== END 2024-12-17 22:58 | disposition home or self-care (01) ==
PROVIDERS: Registered Nurse Emergency; Emergency Provider Emergency Medicine; PCP Nurse Practitioner Family
DX: R19.7 Diarrhea, unspecified (principal); R11.2 Nausea with vomiting, unspecified; Z79.899 Other long term (current) drug therapy; R10.9 Unspecified abdominal pain; K80.20 Calculus of gallbladder without cholecystitis without obstruction; E86.0 Dehydration
CPT/HCPCS: 36415; 80053; 81025; 83690; 96374; 99285; 74177; 81003; 83735; 85025; 99284; J2405; J3490

== ENCOUNTER 2025-02-02 10:42 | Day surgery (SDC) | payer OTHER, SELFPAY ==
[2025-02-02] VITALS (7 sets, daily range): BP systolic 104–126; BP diastolic 62–75; PULSE 63–76; RESP 15–19; TEMP 36.2–36.7; O2SAT 98–100; BMI 40.4
[2025-02-02] MEDS: Lactated Ringers 1,000 ML 80 ML IV (11:22)
--- NOTE | 2025-02-02 11:33 | W.ANESPRE ---
General Info Date of Service Date Performed: 02/02/25 Height: 5 ft 2 in Weight: 100.1 kg Body Mass Index (BMI): 40.4 Surgical Procedure: Operation Date: 02/02/25 10:55 Proposed Procedure Side Surgeon p Cholecystectomy Laparoscopic Tete Osuna MD Meds Allergies and Home Medications Allergies Allergy/AdvReac Type Severity Reaction Status Date / Time COLD TEMPERATURES AdvReac Swelling/Ed Uncoded 02/02/25 11:03 reena Home Medication ?Medication ?Instructions ?Recorded inhalational spacing device (Space ##1 01/27/16 Chamber Plus) albuterol sulfate 90 mcg/actuation 2 puff inhalation Q4H PRN ##1 02/25/24 aerosol inhaler citalopram 20 mg tablet 20 mg PO DAILY #90 tabs 02/25/24 norgestimate 0.25 mg-ethinyl 1 tab PO DAILY #84 tabs 03/24/24 estradiol 0.035 mg tablet ferrous sulfate 325 mg (65 mg 325 mg PO QDAY #90 tabs 06/09/24 iron) tablet metformin 500 mg tablet,extended 500 mg PO DAILY #90 tabs 09/15/24 release 24 hr epinephrine 0.3 mg/0.3 mL 0.3 mg (0.3 mL) IM ONCE ##1 11/17/24 injection, auto-injector (EpiPen 2-Paulino) levothyroxine 75 mcg tablet 75 mcg PO DAILY #90 tabs 11/17/24 ondansetron 4 mg disintegrating 4 mg PO Q6H PRN nausea and 11/17/24 tablet vomiting #20 tabs atomoxetine 10 mg capsule 10 mg PO QAM #28 caps 01/13/25 tirzepatide (weight loss) 5 mg/0.5 7.5 mg (0.75 mL) subcut QWEEK 01/13/25 mL subcutaneous pen injector Obesity #2 mL Current Visit Medications: Current Medications Generic Name Dose Route Start Last Admin Trade Name Freq PRN Reason Stop Dose Admin Ringer's Solution 1,000 mls @ 80 mls/hr 02/02/25 06:00 02/02/25 11:22 IV 02/02/25 23:59 80 mls/hr INFUSION KD Administration IV Miscellaneous Supplies 1 each 02/02/25 06:00 Iv Access IV 02/02/25 23:59 DIRECTED KD Sodium Chloride 0 ml 02/02/25 06:00 Normal Saline Flush 10 Ml Syr IV 02/02/25 23:59 PRN PRN Sodium Chloride 0 ml 02/02/25 06:00 Normal Saline 10 Ml Vial IJ 02/02/25 23:59 DIRECTED PRN Sterile Water 0 ml 02/02/25 06:00 Water,Injection,Sterile 10 Ml Vial IJ 02/02/25 23:59 DIRECTED PRN PFSH Active Problems Active Problems: Problem Status Onset Code Symptomatic cholelithiasis Acute K80.20 Gastroenteritis Acute K52.9 Acquired hypothyroidism Acute 12/10/15 E03.9 Obesity, morbid, BMI 40.0-49.9 Acute E66.01 ADHD (attention deficit hyperactivity disorder) Acute F90.9 Hidradenitis suppurativa Acute L73.2 Iliotibial band syndrome of left side Acute M76.32 Trochanteric bursitis, left hip Acute M70.62 Labral tear of left hip joint Acute S73.192A Lumbar back pain Acute M54.50 Shellfish allergy Acute Z91.013 Medical History Medical History Anxiety Depression Family history of fatty liver Hx of renal calculi Contraception Currently on OCPs IUD with abnormal uterine bleeding. Chronic motor tic (01/27/16) Asthma Urticaria due to cold Food allergy Tonsil stone Surgical History Surgical History Patellar instability of right knee S/P MPFL reconstruction: 11/09/2020 S/P Revision MPFL reconstruction: 08/09/2021 Tobacco Smoking/Tobacco Use Status: Never Passive smoking exposure: No Second hand exposure: No Alcohol Alcohol Intake: current Alcohol intake frequency: a few times a month Alcohol type: other Substance Use Substance use: Never Substance use type: does not use Prental History History 0 Para Hx # Term Pregnancies Multiple births Hx # Pregnancies Ectopic pregnancies AB induced Hx Number of Living Children AB spontaneous Vital Signs and Lab Results Vital Signs Most Recent Vital Signs in EMR: Most Recent Vital Signs Temp Pulse Resp BP Pulse Ox 36.3 C L 76 16 126/74 100 02/02/25 10:50 02/02/25 10:50 02/02/25 10:50 02/02/25 10:50 02/02/25 10:50 Point of Care Results Point of Care Results: POC- Test(urine) Negative 02/02/25 11:12 Imaging and Studies Imaging and Studies Study information below may be from another EMR and interpreted by another provider. Please see original notes in EMR for more complete details. EKG Summary: 11/02/21: Exam: Resting ECG Reason for Exam: covid positive 9 days ago, lightheaded Patient Location: O HR:73 bpm ECG Measurements Heart Rate 73 AXIS [place] 148 P 32 QRSd 105 QRS 0 QT 380 T11 QTc 419 Conclusion Sinus rhythm...normal P axis, V-rate 50- 99 RSR' in V1 or V2, Normal Electrocardiogram Anesthesia Assessment and Plan Anesthesia History Personal History: No History of Anesthesia Complications Family History: No Family History of Anesthesia Complications Exercise Tolerance Exercise Tolerance: Metabolic Equivalents>4 Pertinent Negatives Pertinent Negatives: No Symptoms of GERD, No Major Cardiovascular Symptoms or Complaints and No Major Pulmonary Symptoms or Complaints Cardiac & Pulmonary Exam Cardiac Exam: Normal S1/S2 Heart Sounds Pulmonary Exam: Clear Bilateral Breath Sounds Implantable Cardiac Device Does patient have a Pacemaker or an ICD?: No Airway Exam Known Difficult Airway: No Mallampati Class: 1 Mouth Opening: Normal (> 3cm) Thyromental Distance: Greater than 3 cm Neck Range of Motion: Full ROM Neck Circumference: Normal Teeth Condition: Normal Dentition ASA Classification ASA Score: ASA 3 Emergency Case?: No NPO Status NPO Status: NPO Clears >2 hours, Solids >8 hours Status Status: Negative HCG Anesthesia Plan Resuscitation Status: Full Code Anesthesia Technique: General Anesthesia Airway Planned: Endotracheal Tube Monitors Used: Standard Monitors and SedLine
--- NOTE | 2025-02-02 12:17 | W.PM.DSUDISC ---
Date of service: 02/02/25 Discharge Plan Disposition Patient Disposition: Home Condition: Stable Discharge Details Attending Provider: Tete Osuna Primary Care Provider: Angela Andujar Recommendations for Follow Up Recommended tests to be ordered by follow up provider: None Home Meds and New Rx's Prescriptions: New hydrocodone-acetaminophen 5-325 mg tablet 1 tab PO Q6H PRN (Reason: pain) Qty: 10 0RF Continued albuterol sulfate 90 mcg/actuation HFA aerosol inhaler 2 puff Inhalation Q4H PRN Qty: 1 1RF Rx Instructions: 2 puffs with spacer every 4hr as needed for cough/wheeze citalopram 20 mg tablet 20 mg PO DAILY Qty: 90 3RF norgestimate-ethinyl estradiol 0.25-35 mg-mcg tablet 1 tab PO DAILY Qty: 84 4RF metformin 500 mg tablet extended release 24 hr 500 mg PO DAILY Qty: 90 1RF epinephrine [EpiPen 2-Paulino] 0.3 mg/0.3 mL auto-injector 0.3 mg IM ONCE Qty: 1 1RF levothyroxine 75 mcg tablet 75 mcg PO DAILY Qty: 90 3RF ondansetron 4 mg tablet,disintegrating 4 mg PO Q6H PRN (Reason: nausea and vomiting) Qty: 20 0RF (DME) Space Chamber Plus 1 EACH spacer 1 ea Miscellaneous Q4H PRN Qty: 1 Rx Instructions: use with inhaler as directed ferrous sulfate 325 mg (65 mg iron) tablet 325 mg PO QDAY Qty: 90 3RF Rx Instructions: Take 1 tablet once a day with your vitamin c tirzepatide (weight loss) 5 mg/0.5 mL pen injector 7.5 mg subcut QWEEK Qty: 2 0RF Rx Instructions: TIRZEPATIDE Concentration: Tirzepatide 25mg/mL + Hydroxocobalamin 2.5 mg/mL solution Tirzepatide + Hydroxocobalamin for compounding. Patient requires additional drug component to decrease risk of side effects of fatigue Week 1-4 Inject 0.1mL once weekly Week 5-8 Inject 0.2mL once weekly Week 9-12 Inject 0.3mL once weekly Week 13-16 Inject 0.4 mL once weekly Week 17-20 Inject 0.0.5mL once weekly Week 21+ Inject 0.6mL once weekly atomoxetine 10 mg capsule 10 mg PO QAM MDD 10 mg Qty: 28 1RF Discharge Instructions Additional Instructions: Shower in 48 hours. Wash gently over steri-strips with soapy hands, rinse, pat dry. Don't peel strips or submerge them under water. The longer they stay on, the nicer the scars will heal. Ok to walk, climb stairs, and resume normal activities of daily living. Do not lift/push/pull more than 20lb for 4 weeks. Diet as tolerated, allow your body to naturally make adjustments in the bile flow after surgery. Eat your normal diet. Loose stools may occur. We will discuss them at follow up if still present in 2 weeks. Call or return for fever or incisional problems. Activity:: see written instructions Remove Dressings/Wound Care:: Do Not Remove Shower/Bathe:: 48 hours Diet:: As Tolerated Discharge Orders Discharge Orders: Discharge Order (Routine); Ordered 02/02/25 Ordered By: Tete Osuna DS: Diagnosis Discharge Diagnosis (1) Symptomatic cholelithiasis: Status: Acute (2) Intrahepatic gallbladder: Status: Acute
[2025-02-02] MEDS: Bupivacaine 0.5% Pres-Free W/EPI 30 ML VIAL (13:03)
--- NOTE | 2025-02-02 14:20 | GB_PTH ---
PATIENT: Alma Ayers LOC: [facility] U#:[id number] AGE/SX: 24/F ROOM: RE02/02/[address]: Tete Osuna MD : [id number] BED: DIS: 02/02/2025 SPEC #: [id number] RECD: 02/02/25 16:39 STATUS: DUTCH REVievk #: [id number] ASHA: 02/02/25 14:[address]: Tete Osuna DEPT: Surgical Specimen RECD BY: Karuna Cooney ENTERED: 02/02/25 16:40 SP TYPE: GB OTHR DR: Angela Andujar, AMOS Tissues: 1 - GALLBLADDER Procedures: GROSS AND MICRO LEVEL 3 Comments: [id number]
[2025-02-02] MEDS: Bupivacaine LIPOSOME/PF 133 MG/10 ML VIAL IJ (14:30)
--- NOTE | 2025-02-02 14:43 | ROE_ITS ---
Operative Note Operative Note Refer to Anesthesia Record Procedure Description: Preoperative diagnosis: Symptomatic cholelithiasis Postoperative diagnosis: Symptomatic cholelithiasis, intrahepatic gallbladder Procedure: Laparoscopic cholecystectomy Surgeon: Tete Osuna MD [employer]ting Machine Operator: KATE Issa Anesthesia: GETA + local EBL 40mL Specimen: Gallbladder Complications: None Procedure Description: This is a 24-year-old female who presented to the office with abdominal symptoms and gallstones. The evaluation yielded a diagnosis of symptomatic cholelithiasis. Cholecystectomy was indicated. We discussed the procedure risks, benefits, alternatives, and expectations. All of the patient's questions were answered to their satisfaction. Informed consent was obtained and the patient was transferred to the operating room. She was placed supine on the operating table. SCDs were placed and all pressure points were padded appropriately. General anesthesia was induced. The abdomen was clipped prepped and draped in the usual sterile fashion. Timeout was performed. Local anesthetic was infiltrated underneath the umbilicus. An incision was made in the skin and the incision carried down to the umbilical stalk using cautery. The umbilical stalk was elevated using a Dana clamp and the fascia cleared of its fatty tissues. An incision was made in the fascia, and a Sue clamp was used to enter the peritoneum. A finger was used to ensure no structures were adhered to the anterior abdominal wall. A Younger trocar was introduced and the abdomen was insufflated to 15 mmHg. Initial laparoscopy confirmed no injury to the intra-abdominal structures. 3 additional 5 mm ports were placed in the upper abdomen under direct visualization. Local anesthetic was infiltrated at each port site. The patient's head was elevated and she was rotated toward the left. The gall bladder was elevated. The gallbladder was markedly enlarged and a large portion of the fundus was noted to be intrahepatic. The posterior surface of the gallbladder could be seen from the top view of the liver, within the dome of the liver of the right lobe. The dome was grasped and retracted cephalad. The infundibulum was noted to run medially at an angle, with significant adhesions to the stomach and duodenum. The common bile duct was pulled up to the infundibulum. Careful blunt dissection the gallbladder infundibulum from the nearby structures. The infundibulum was then grasped and a careful dissection ensued. Calots node was noted to be deep and medial, and it marked the location of a vascular structure that was thin, and entered the wall of the gallbladder directly. The infundibulum was skeletonized and a ductal structure was cleared off and identified as entering the infundibulum directly. The posterior cystic plate was cleared using careful blunt dissection and LigaSure device, and a critical view of safety was obtained. A posterior branch vein was cauterized with Ligasure. The cystic duct and cystic artery were identified, clipped and transected with EndoShears. The gallbladder was then removed from the liver bed with cautery, blunt dissection, and maryland Ligasure device. Halfwway to the dome, the gallbladder was noted to fold inward into the liver. This was followed posteriorly and superiorly until the gallbladder was freed entirely. The dome of the gallbladder and a large portion of its posterior wall were intrahepatic. Once removed, it was placed into an Endo Catch bag and removed from the abdomen through the umbilicus. The umbilical incision required extension to accommodate the enlarged, stone-filled gallbladder. The liver bed was examined and hemostasis assured. The patient taken out of reverse Trendelenburg position. The 5 mm ports were removed and the abdomen was desufflated. The umbilical trocar was removed. The umbilical fascia was closed with an 0 Vicryl suture in a [id number] stitch. The remainder of the local anesthetic as well as Exparel 10mL were infiltrated into the umbilical fascia. The incisions were all closed with interrupted 4-0 Monocryl sutures in subcuticular fashion. The incisions were all washed and dried and Steri-Strips applied. The patient tolerated the procedure well. She extubated in the operating room and transferred to the recovery room in stable condition. There were no complications Date of Procedure: 02/02/25
--- NOTE | 2025-02-02 15:20 | W.ANESPOSTOP ---
Postoperative Evaluation Date, Time and Location Date Performed: 02/02/25 Time Performed: 15:20 Patient Location: PACU Vital Signs Most Recent Imported Vital Signs: Most Recent Vital Signs Temp Pulse Resp BP Pulse Ox 36.3 C L 76 16 126/74 100 02/02/25 14:57 02/02/25 10:50 02/02/25 10:50 02/02/25 10:50 02/02/25 10:50 Pain Score Most Recent Pain Score: Most Recent Pain Score Pain Level 0 02/02/25 14:57 Assessment Mental Status: Awake (Alert & Oriented to Patient Baseline) Airway and Respiratory Function: Patent airway with normal (patient baseline) respiratory exam Cardiovascular Function: Hemodynamically Stable Hydration Status: Adequately Hydrated Nausea & Vomiting: No Nausea or Vomiting Pain: Pain is tolerable per patient Peripheral Nerve Block: Patient did not receive a nerve block
== END 2025-02-02 16:45 | disposition home or self-care (01) ==
PROVIDERS: PCP Nurse Practitioner Family; Visit Provider Surgery
PROC: 0FT44ZZ Resection of Gallbladder, Percutaneous Endoscopic Approach (ICD-10-PCS; CPT 47562; principal; 2025-02-02 10:45)
DX: K80.20 Calculus of gallbladder without cholecystitis without obstruction (principal); Q44.1 Other congenital malformations of gallbladder
CPT/HCPCS: 47562; 88304; J0131; J0666; J0690; J1100; J1171; J1805; J1885; J2003; J2250; J2405; J2704; J3010; J3475